=== PATIENT | male | born 1975 | race Caucasian/White ===

== ENCOUNTER 2016-03-23 14:59 | Observation (INO) | payer OTHER ==
[~2016-03-23] VITALS: Ht 172.7 cm; Wt 72.9 kg
--- NOTE | 2016-03-23 16:21 | DIAGNOSTIC IMAGING REPORT ---
PROCEDURE: XR CHEST 1 VIEW INDICATION: CHEST PAIN TECHNIQUE: Portable AP view 04:10 p.m. COMPARISON: Chest 09/01 15 and 08/07/2013 FINDINGS: Lungs are clear. Heart and mediastinum are normal. Thorax is normal. IMPRESSION: 1. Negative chest.
--- NOTE | 2016-03-23 20:26 | ED NURSING NOTES ---
Clinical Report - Nurses [facility] [address] [place] [address] 03/23/2016 15:00 [id number] Triage time 15:42 Mar 23 2016. Acuity: LEVEL 4. Chief Complaint: FEVER and BODY ACHES. Alert. No acute distress. --15:46 Tigist Oviedo R.N. 15:42 03/23/16. BP: 119/83. HR: 98. RR: 18. O2 saturation: 100%. Temp: 99.0 F. Pain level now 11/21. --15:46 Tigist Oviedo R.N. Weight: 79.3 kg stated. Height/Length: 68 inches Per Patient. BMI: 26.6. --15:42 Tigist Ovideo R.N. Medications Tums Oral. --15:45 Tigist Oviedo R.N. Medication/allergy information source: the patient. --15:46 Tigist Oviedo R.N. Allergies Lactose Intolerance (GI). Vicodin.(vomiting) --15:45 Tigist Oviedo R.N. History Arrived by private vehicle. Historian: patient. Primary physician ([facility]). ( Pt states there is something wrong with his heart because he can't breath. On observation, pt VSS.). Onset. (couple days). 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 (sudafed). PAST MEDICAL HX: Has not received seasonal influenza immunization. SOCIAL HX: Heavy tobacco smoker (cigarette)- less than 1 pack per day. Occasional alcohol use. History of drug use: marijuana. FALL RISK ASSESSMENT: Fall risk assessment completed. No fall risk identified. NUTRITIONAL RISK ASSESSMENT: The nutritional risk assessment revealed no deficiencies. FUNCTIONAL ASSESSMENT: Functional assessment: no impairments noted. LEARNING NEEDS ASSESSMENT: The learning needs assessment revealed no barriers. SKIN INTEGRITY ASSESSMENT: Skin integrity risk assessment completed. No skin integrity risk identified. --15:46 Tigist Oviedo R.N. PROBLEMS: Atypical Chest Pain. Abdominal Pain. Abnormal Test. Gastroesophageal Reflux Disease. Chest Injury. Fall. Contusion. Tetanus Status. URI. Immunizations. Migraine Headache. --15:46 Tigist Oviedo R.N. ADDITIONAL SURGERIES: Testicle surgery at age 7 . --15:46 Tigist Oviedo R.N. Interventions ID band on patient. To room. --15:46 Tigist Oviedo R.N. PHYSICAL ASSESSMENT GENERAL / NEURO / PSYCH: Alert. Appears in no acute distress. RESPIRATORY: Respirations not labored. --16:11 Reymundo Norwood R.N. 16:10 03/23/16. BP: 128/83. HR: 92. RR: 14. O2 saturation: 98% on room air. --16:11 Reymundo Norwood R.N. late entry -16:00. Ambulatory to room. Patient gowned. GENERAL / NEURO / PSYCH: Alert. Oriented X 4. Appears in pain and in distress. He has had weakness. HEENT: Pupils equal, round and reactive to light. Mucous membranes are pink. RESPIRATORY: Mild respiratory distress. Chest wall tenderness (substernal, radiating into his right arm.). CVS: Cardiac rhythm: normal sinus rhythm; left bundle branch block; (minimal ST elevations). Capillary refill less than 2 seconds. Pulses within normal limits. GI / : Abdomen soft and nontender and normal bowel sounds. SKIN: Skin intact. Skin is pale. Skin is warm. Skin is slightly diaphoretic. Normal skin turgor. --16:24 Randall Braxton R.N. NURSING PROGRESS NOTES Flu swab obtained by RN via nasal swab. --15:49 Tigist Oviedo R.N. ( EKG 15:52 by tech in triage). --15:49 Tigist Oviedo R.N. ( pt back to the waiting room.). --15:53 Tigist Oviedo R.N. ( pt states he eats TUMS, about 120 tablets weekly.). --15:56 Tigist Oviedo R.N. Checked patient name and birthdate: patient confirmed. Blood samples drawn from the IV site with Vacutainer by nurse ; labeled in presence of the patient and sent to lab: rainbow set. Line flushed with 10 mL normal saline post blood draw. Patient gowned. Two patient identifiers checked. Call light placed in reach. Bed placed in lowest position. Patient ready for evaluation- chart flagged. ( Radiology in room to perform CXR.). --16:12 Reymundo Norwood R.N. 16:00 03/23/2016 Aspirin PO Tablets 324 mg given. Allergies verified and confirmed 5 rights. --16:13 Randall Braxton R.N. 16:07 03/23/2016 Site #1 started via IV in the right antecubital space with an 18g angiocath, with aseptic technique and good blood return; one attempt. Blood drawn: rainbow set. Labeled in the presence of the patient and sent to the lab. Saline lock flushed with 10 mL saline. --16:14 Randall Braxton R.N. 16:08 03/23/2016 NITROGLYCERIN PASTE Topical Paste 1 inch. Applied to the right chest. Allergies verified and confirmed 5 rights. --16:13 Randall Braxton R.N. late entry -16:00. Head of bed elevated. Reassurance given. Patient ready for evaluation- chart flagged. ED physician notified. ( Monitoring: Cardiac II & III, SPo2, NIBP, RR.). --16:26 Randall Braxton R.N. 16:25 03/23/16. Pain level now: 09/21. --16:27 Randall Braxton R.N. 16:30 03/23/16. BP: 117/77. HR: 91. RR: 21. O2 saturation: 94% on room air. Pain level now: 08/21. --16:50 Randall Braxton R.N. 16:45 03/23/16. O2 saturation: 93% on room air. O2 started via nasal cannula at 2 liters/minute. Pain level now: 08/21. --16:51 Randall Braxton R.N. 17:10 03/23/16. BP: 116/69. HR: 89. RR: 19. O2 saturation: 95% on nasal cannula at 2 liters/minute. --17:42 Randall Braxton R.N. 17:25 03/23/16. BP: 110/77. HR: 91. RR: 18. O2 saturation: 97% on nasal cannula at 2 liters/minute. Pain level now: 0/10. Additional comments: asleep. --17:44 Randall Braxton R.N. DISPOSITION / DISCHARGE Departure time: 2235. Condition at departure: stable. Admitted. Report was given to a nurse via a phone call. Report included patient's care, treatment, medications, reviewed medication reconcilliation, and condition (including any recent changes or anticipated changes). All questions were answered. Report was acknowledged and care was transferred. Bed obtained and ready. Patient's personal items; items were placed in belongings bag, given to the mother and transported with the patient. FALL RISK ASSESSMENT: Fall risk assessment completed. No fall risk identified. --22:36 Henrry Hart R.N. 22:35 03/23/16. BP: 120/77. HR: 88. RR: 16. O2 saturation: 99%. Temp: 98 F. Pain level now 0/10. --22:36 Henrry Hart R.N. Locked/Released at 03/23/2016 22:36 by Henrry Hart R.N.
--- NOTE | 2016-03-23 20:26 | ED ORDER SUMMARY ---
..... Patient: SUMIT SUAZO OrderSheet [facility] VisitID: [id number] [place] [address] 41y, M Registration Date/Time: 03/23/2016 ORDER SHEET Weight: 79.3 kg (stated) Allergies: Lactose Intolerance (GI), Vicodin GENERAL ORDERS: EKG - ER Stat (15:47 03/23/2016 SBzhange R.N. per protocol) (15:49 SBalde R.N.) Rapid Influenza Screen (Nasal Pharyngeal) (nasal) Urgent (15:47 03/23/2016 SBalde R.N. per protocol) (Ack 15:59 TBergley) (16:00 TBergley) Chest 1V Urgent (15:59 03/23/2016 Maricel Wade) (Ack 16:06 TBergley) (16:12 Chayito R.N.) Cardiac Panel Stat (16:04 03/23/2016 Maricel Wade) (Ack 16:06 TBergley) (16:12 Chayito R.N.) Urine Drug Screen Urgent (16:04 03/23/2016 Maricel Wade) (Ack 16:06 TBergley) (19:22 Wanda R.N.) BNP Urgent (16:04 03/23/2016 Maricel Wade) (Ack 16:06 TBergley) (16:12 Chayito R.N.) D-Dimer Urgent (16:04 03/23/2016 Maricel Wade) (Ack 16:06 TBergley) (16:12 Chayito R.N.) CPK Urgent (19:29 03/23/2016 Maricel Wade) (19:37 Crys ER Paper Cutter Operator) Troponin-I Urgent (19:29 03/23/2016 Maricel Wade) (19:37 Crys ER Paper Cutter Operator) MEDICATION ORDERS: Aspirin PO 325 mg (Do not crush or chew, NOW) (16:04 03/23/2016 Maricel Wade) (16:13 Chayito R.N.) NitroGLYCERIN Paste Topical 1 in. (NOW, to CW) (16:04 03/23/2016 Maricel Wade) (16:13 Chayito Navarro) IV FLUIDS: IV Saline Lock (16:04 03/23/2016 Maricel Wade) (16:14 Chayito Navaror) ORDER SHEET NOTES: [Electronically signed by Edson Woodward Dr. (20:30 03/23/2016)] [Electronically signed by Henrry Hart R.N. (22:36 03/23/2016)] [Electronically locked/signed by Henrry Hart R.N. (22:36 03/23/2016)]
--- NOTE | 2016-03-23 20:26 | ED ORDER SUMMARY ---
..... Patient: SUMIT SUAZO OrderSheet [facility] VisitID: [id number] [place] [address] 41y, M Registration Date/Time: 03/23/2016 ORDER SHEET Weight: 79.3 kg (stated) Allergies: Lactose Intolerance (GI), Vicodin GENERAL ORDERS: EKG - ER Stat (15:47 03/23/2016 SBzhange R.N. per protocol) (15:49 SBalde R.N.) Rapid Influenza Screen (Nasal Pharyngeal) (nasal) Urgent (15:47 03/23/2016 SBalde R.N. per protocol) (Ack 15:59 TBergley) (16:00 TBergley) Chest 1V Urgent (15:59 03/23/2016 Maricel Wade) (Ack 16:06 TBergley) (16:12 Chayito R.N.) Cardiac Panel Stat (16:04 03/23/2016 Maricel Wade) (Ack 16:06 TBergley) (16:12 Chayito R.N.) Urine Drug Screen Urgent (16:04 03/23/2016 Maricel Wade) (Ack 16:06 TBergley) (19:22 Wanda R.N.) BNP Urgent (16:04 03/23/2016 Maricel Wade) (Ack 16:06 TBergley) (16:12 Chayito R.N.) D-Dimer Urgent (16:04 03/23/2016 Maricel Wade) (Ack 16:06 TBergley) (16:12 Chayito R.N.) CPK Urgent (19:29 03/23/2016 Maricel Wade) (19:37 Cyrs ER Cut Off Worker) Troponin-I Urgent (19:29 03/23/2016 Maricel Wade) (19:37 Crys ER Cut Off Worker) MEDICATION ORDERS: Aspirin PO 325 mg (Do not crush or chew, NOW) (16:04 03/23/2016 Maricel Wade) (16:13 Chayito R.N.) NitroGLYCERIN Paste Topical 1 in. (NOW, to CW) (16:04 03/23/2016 Maricel Wade) (16:13 Chayito Navarro) IV FLUIDS: IV Saline Lock (16:04 03/23/2016 Maricel Wade) (16:14 Chayito Navarro) ORDER SHEET NOTES: [Electronically signed by Edson Woodward Dr. (20:30 03/23/2016)] [Electronically signed by Henrry Hart R.N. (22:36 03/23/2016)] [Electronically locked/signed by Henrry Hart R.N. (22:36 03/23/2016)]
--- NOTE | 2016-03-23 20:26 | ED CLINICAL REPORT ---
Clinical Report - Physicians/Mid Levels Former[facility] [address] [place] [address] 03/23/2016 15:00 Patient: SUMIT SUAZO Time Seen: 16:08; initial patient contact. Arrived- By private vehicle. Historian- patient. HISTORY OF PRESENT ILLNESS Chief Complaint: CHEST PAIN. At its maximum, severity described as moderate. When seen in the E.D., severity described as moderate. Modifying factors. Not worsened by anything. Not relieved by anything. It is described as pressure and it is described as located in the central chest area. No radiation. This started today and is still present. Onset during light activity. No nausea, vomiting or diaphoresis. He has had difficulty breathing. Similar symptoms previously: None. Recent medical care: Not recently seen/assessed. REVIEW OF SYSTEMS No fever, chills, pedal edema or calf pain. He has had a cough. All systems otherwise negative, except as recorded above. PAST HISTORY Atypical Chest Pain. Abdominal Pain. Abnormal Test. Gastroesophageal Reflux Disease. Chest Injury. Fall. Contusion. Tetanus Status. URI. Immunizations. Migraine Headache. ADDITIONAL SURGERIES: Testicle surgery at age 7 . Medications: Tums Oral. Allergies: Lactose Intolerance (GI). Vicodin.(vomiting). SOCIAL HISTORY Current every day smoker. History of drug use: marijuana. No alcohol use. FAMILY HISTORY History of heart disease. ADDITIONAL NOTES The nursing notes have been reviewed with agreement regarding the chief complaint, PMH and patient medications and allergies. PHYSICAL EXAM Vital Signs: 03/23/2016 15:42 BP: 119/83. HR: 98. RR: 18. O2 saturation: 100%. Temp: 99.0 F. Have been reviewed as normal. Appearance: Alert. Oriented X3. No acute distress. Eyes: Eyes normal inspection. ENT: Pharynx normal. Neck: Normal inspection. CVS: Normal heart rate and rhythm. Heart sounds normal. Respiratory: No respiratory distress. Breath sounds normal. Abdomen: Soft and nontender. Bowel sounds normal. Skin: Skin warm and dry. Normal skin color. No rash. Extremities: No calf tenderness. No lower extremity edema. Neuro: Oriented X 3. LABS, X-RAYS, AND EKG EKG: EKG time: (1552). Normal sinus rhythm. Rate: 98. Normal P waves. Normal KE. Normal QRS complex. Right axis deviation. ST elevation in lead V2, V3 and V5 (present on EKG on 09/01/15). Changes present when compared to prior EKG. 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 ST elevations(mild) unchanged.). The study has been interpreted contemporaneously by me. The EKG appears to be a good tracing. Interpretation time: 1552. Chest X-ray: No acute disease. Normal lung markings present. Normal heart size. No infiltrate. Views: AP. Technique: good. The X-rays were independently viewed by me and interpreted contemporaneously by me. A comparison with prior films reveals that the findings are unchanged. Interpretation time: 17:44. Laboratory Tests: CBC w Diff: (JOHANNA: 03/23/2016 16:07) ( [facility] [place] 16:24) Final results Test Result Flag Units (Reference) WHITE BLOOD COUNT 9.5 K/uL (4.5-11.5) RED BLOOD COUNT 4.78 M/uL (4.50-5.90) HEMOGLOBIN 14.4 gm/dL (13.5-17.5) HEMATOCRIT 43.4 % (41.0-53.0) MEAN CELL VOLUME 91 fL (80-100) MEAN CORPUSCULAR HGB 30 pg (26-34) MEAN CORPUSCULAR HGB CONC 33 g/dL (31-37) RED CELL DISTRIBUTION WIDTH 13.1 % (11.6-14.8) PLATELET COUNT 188 K/uL (150-400) NEUTROPHIL % 75.8 H % (50-75) LYMPH % 15.4 L % (25-40) MONO % 8.4 % (3-14) EOSINOPHIL % 0.1 % (0-4) BASOPHIL % 0.3 % (0-2) [id number]: (JOHANNA: 03/23/2016 16:07) ( VtgRcvd 03/23/2016 16:41) Final results Test Result Flag Units (Reference) D-DIMER QUANTITATIVE 0.50 ug/mLFEU (0.27-0.52) The primary value of this quantitative assay relates toits negative predictive value (i.e. exclusion) of pulmonaryembolism/deep vein thrombosis/DIC.Elevated levels of d-dimer may also occur with:, age, cancer, inflammation, liver disease,post-op, infection, hematoma, coronary disease, peripheralarteriopathy, bleeding disorders and thrombolytic treatment.Results should be correlated with other clinical andradiological data.Testing Methodology: Latex Immunoassay BNP: (JOHANNA: 03/23/2016 16:07) ( [facility] [place] 03/23/2016 16:47) Final results Test Result Flag Units (Reference) B-TYPE NATRIURETIC PEPTIDE 11.1 pg/ml (5-100) CHEM 13 PANEL: (JOHANNA: 03/23/2016 16:07) ( [facility] [place] 03/23/2016 16:45) Final results Test Result Flag Units (Reference) GLUCOSE 99 mg/dL (70-110) BUN 9 mg/dL (7-18) CREATININE 1.2 mg/dL (0.6-1.3) Estimated GFR >60 mL/min Estimated GFR- >60 mL/min Note: Persistent reduction over 3 months in eGFR<60 mL/min/1.73 m2 defines CKD. Patients with eGFR values>=60 mL/min/1.73 m2 may also have CKD if evidence ofpersistent proteinuria. Additional information may be foundat www.kidney.org. SODIUM 138 mmol/L (136-145) POTASSIUM 4.1 mmol/L (3.5-5.1) CHLORIDE 99 mmol/L (98-107) CARBON DIOXIDE 29 mmol/L (21-32) CALCIUM 8.2 L mg/dL (8.5-10.1) TOTAL PROTEIN 7.3 g/dL (6.4-8.2) ALBUMIN 3.4 g/dL (3.3-5.0) BILIRUBIN, TOTAL 0.3 mg/dL (0.0-1.0) ALKALINE PHOSPHATASE 84 U/L (46-116) AST (SGOT) 25 U/L (15-37) ALT (SGPT) 25 U/L (12-78) CPK 224 U/L (24-260) MAGNESIUM 1.9 mg/dL (1.8-2.4) TROPONIN I <0.05 L ng/mL (0.00-1.5) TROPONIN REFERENCE RANGE:<0.1 NEGATIVE0.1-1.5 INDETERMINANT>1.5 POSITIVE Rapid Influenza Screen: (JOHANNA: 03/23/2016 15:48) ( MsgRcvd 03/23/2016 16:13) Final results SPECIMEN DESCRIPTION: NASAL Test Result Flag Units (Reference) RAPID INFLUENZA SCREEN DATE: 03/23/16 INFLUENZA A: NEGATIVE SCREEN FOR INFLUENZA A INFLUENZA B: NEGATIVE SCREEN FOR INFLUENZA B . PROGRESS AND PROCEDURES Discussed case with hospitalist, (call returned 1909, Dr. Alvarez. Run 2nd set of CE's, if neg, will admit and stress test in the AM). CLINICAL IMPRESSION Precordial chest pain .12 lead EKG performed. INSTRUCTIONS Follow-up: Screening today revealed the patient's blood pressure to be in the normal range. (Electronically signed by Edson Woodward Dr. 03/23/2016 20:30)
--- NOTE | 2016-03-23 20:26 | ED CLINICAL REPORT ---
Clinical Report - Physicians/Mid Levels [facility] [address] [place] [address] 03/23/2016 15:00 Patient: SUMIT SUAZO Time Seen: 16:08; initial patient contact. Arrived- By private vehicle. Historian- patient. HISTORY OF PRESENT ILLNESS Chief Complaint: CHEST PAIN. At its maximum, severity described as moderate. When seen in the E.D., severity described as moderate. Modifying factors. Not worsened by anything. Not relieved by anything. It is described as pressure and it is described as located in the central chest area. No radiation. This started today and is still present. Onset during light activity. No nausea, vomiting or diaphoresis. He has had difficulty breathing. Similar symptoms previously: None. Recent medical care: Not recently seen/assessed. REVIEW OF SYSTEMS No fever, chills, pedal edema or calf pain. He has had a cough. All systems otherwise negative, except as recorded above. PAST HISTORY Atypical Chest Pain. Abdominal Pain. Abnormal Test. Gastroesophageal Reflux Disease. Chest Injury. Fall. Contusion. Tetanus Status. URI. Immunizations. Migraine Headache. ADDITIONAL SURGERIES: Testicle surgery at age 7 . Medications: Tums Oral. Allergies: Lactose Intolerance (GI). Vicodin.(vomiting). SOCIAL HISTORY Current every day smoker. History of drug use: marijuana. No alcohol use. FAMILY HISTORY History of heart disease. ADDITIONAL NOTES The nursing notes have been reviewed with agreement regarding the chief complaint, PMH and patient medications and allergies. PHYSICAL EXAM Vital Signs: 03/23/2016 15:42 BP: 119/83. HR: 98. RR: 18. O2 saturation: 100%. Temp: 99.0 F. Have been reviewed as normal. Appearance: Alert. Oriented X3. No acute distress. Eyes: Eyes normal inspection. ENT: Pharynx normal. Neck: Normal inspection. CVS: Normal heart rate and rhythm. Heart sounds normal. Respiratory: No respiratory distress. Breath sounds normal. Abdomen: Soft and nontender. Bowel sounds normal. Skin: Skin warm and dry. Normal skin color. No rash. Extremities: No calf tenderness. No lower extremity edema. Neuro: Oriented X 3. LABS, X-RAYS, AND EKG EKG: EKG time: (1552). Normal sinus rhythm. Rate: 98. Normal P waves. Normal KE. Normal QRS complex. Right axis deviation. ST elevation in lead V2, V3 and V5 (present on EKG on 09/01/15). Changes present when compared to prior EKG. 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 ST elevations(mild) unchanged.). The study has been interpreted contemporaneously by me. The EKG appears to be a good tracing. Interpretation time: 1552. Chest X-ray: No acute disease. Normal lung markings present. Normal heart size. No infiltrate. Views: AP. Technique: good. The X-rays were independently viewed by me and interpreted contemporaneously by me. A comparison with prior films reveals that the findings are unchanged. Interpretation time: 17:44. Laboratory Tests: CBC w Diff: (JOHANNA: 03/23/2016 16:07) ( [facility] [place] 16:24) Final results Test Result Flag Units (Reference) WHITE BLOOD COUNT 9.5 K/uL (4.5-11.5) RED BLOOD COUNT 4.78 M/uL (4.50-5.90) HEMOGLOBIN 14.4 gm/dL (13.5-17.5) HEMATOCRIT 43.4 % (41.0-53.0) MEAN CELL VOLUME 91 fL (80-100) MEAN CORPUSCULAR HGB 30 pg (26-34) MEAN CORPUSCULAR HGB CONC 33 g/dL (31-37) RED CELL DISTRIBUTION WIDTH 13.1 % (11.6-14.8) PLATELET COUNT 188 K/uL (150-400) NEUTROPHIL % 75.8 H % (50-75) LYMPH % 15.4 L % (25-40) MONO % 8.4 % (3-14) EOSINOPHIL % 0.1 % (0-4) BASOPHIL % 0.3 % (0-2) [id number]: (JOHANNA: 03/23/2016 16:07) ( OkgRcvd 03/23/2016 16:41) Final results Test Result Flag Units (Reference) D-DIMER QUANTITATIVE 0.50 ug/mLFEU (0.27-0.52) The primary value of this quantitative assay relates toits negative predictive value (i.e. exclusion) of pulmonaryembolism/deep vein thrombosis/DIC.Elevated levels of d-dimer may also occur with:, age, cancer, inflammation, liver disease,post-op, infection, hematoma, coronary disease, peripheralarteriopathy, bleeding disorders and thrombolytic treatment.Results should be correlated with other clinical andradiological data.Testing Methodology: Latex Immunoassay BNP: (JOHANNA: 03/23/2016 16:07) ( [facility] 03/23/2016 16:47) Final results Test Result Flag Units (Reference) B-TYPE NATRIURETIC PEPTIDE 11.1 pg/ml (5-100) CHEM 13 PANEL: (JOHANNA: 03/23/2016 16:07) ( [facility] 03/23/[place] 16:45) Final results Test Result Flag Units (Reference) GLUCOSE 99 mg/dL (70-110) BUN 9 mg/dL (7-18) CREATININE 1.2 mg/dL (0.6-1.3) Estimated GFR >60 mL/min Estimated GFR- >60 mL/min Note: Persistent reduction over 3 months in eGFR<60 mL/min/1.73 m2 defines CKD. Patients with eGFR values>=60 mL/min/1.73 m2 may also have CKD if evidence ofpersistent proteinuria. Additional information may be foundat www.kidney.org. SODIUM 138 mmol/L (136-145) POTASSIUM 4.1 mmol/L (3.5-5.1) CHLORIDE 99 mmol/L (98-107) CARBON DIOXIDE 29 mmol/L (21-32) CALCIUM 8.2 L mg/dL (8.5-10.1) TOTAL PROTEIN 7.3 g/dL (6.4-8.2) ALBUMIN 3.4 g/dL (3.3-5.0) BILIRUBIN, TOTAL 0.3 mg/dL (0.0-1.0) ALKALINE PHOSPHATASE 84 U/L (46-116) AST (SGOT) 25 U/L (15-37) ALT (SGPT) 25 U/L (12-78) CPK 224 U/L (24-260) MAGNESIUM 1.9 mg/dL (1.8-2.4) TROPONIN I <0.05 L ng/mL (0.00-1.5) TROPONIN REFERENCE RANGE:<0.1 NEGATIVE0.1-1.5 INDETERMINANT>1.5 POSITIVE Rapid Influenza Screen: (JOHANNA: 03/23/2016 15:48) ( MsgRcvd 03/23/2016 16:13) Final results SPECIMEN DESCRIPTION: NASAL Test Result Flag Units (Reference) RAPID INFLUENZA SCREEN DATE: 03/23/16 INFLUENZA A: NEGATIVE SCREEN FOR INFLUENZA A INFLUENZA B: NEGATIVE SCREEN FOR INFLUENZA B . PROGRESS AND PROCEDURES Discussed case with hospitalist, (call returned 1909, Dr. Alvarez. Run 2nd set of CE's, if neg, will admit and stress test in the AM). CLINICAL IMPRESSION Precordial chest pain .12 lead EKG performed. INSTRUCTIONS Follow-up: Screening today revealed the patient's blood pressure to be in the normal range. (Electronically signed by Edson Woodward Dr. 03/23/2016 20:30)
[2016-03-23 21:28] VITALS: BP 110/77
--- NOTE | 2016-03-23 22:37 | ED MAR SUMMARY ---
..... Medication Administration Record [facility] [address] [place] [address] Patient: SUMIT SUAZO Visit ID: [id number] 41y, M Weight: 79.3 kg Height/Length: 68 in BMI: 26.6 ALLERGIES: Lactose Intolerance (GI), Vicodin Given 16:00 03/23/2016 Randall Braxton R.N. Medication Administered: ASPIRIN [PO], Dose: 324 mg Tablets PO. Medication Ordered: Aspirin PO 325 mg (Do not crush or chew, NOW). Given 16:08 03/23/2016 Randall Braxton R.N. Medication Administered: NITROGLYCERIN PASTE [TOPICAL], Dose: 1 in. Paste Topical. Medication Ordered: NitroGLYCERIN Paste Topical 1 in. (NOW, to ).
--- NOTE | 2016-03-23 22:37 | ED DISCHARGE INSTRUCTIONS ---
Patient: SUMIT SUAZO General Instructions [facility] VisitID: [id number] [address] [place] [address] 41y, M Registration Date/Time: 03/23/2016 Precordial chest pain .12 lead EKG performed. INSTRUCTIONS Follow-up: Screening today revealed the patient's blood pressure to be in the normal range. (Electronically signed by Edson Woodward Dr. 03/23/2016 20:30)
--- NOTE | 2016-03-23 22:37 | ED MAR SUMMARY ---
..... Medication Administration Record [facility] [address] [place] [address] Patient: SUMIT SUAZO Visit ID: [id number] 41y, M Weight: 79.3 kg Height/Length: 68 in BMI: 26.6 ALLERGIES: Lactose Intolerance (GI), Vicodin Given 16:00 03/23/2016 Randall Braxton R.N. Medication Administered: ASPIRIN [PO], Dose: 324 mg Tablets PO. Medication Ordered: Aspirin PO 325 mg (Do not crush or chew, NOW). Given 16:08 03/23/2016 Randall Braxton R.N. Medication Administered: NITROGLYCERIN PASTE [TOPICAL], Dose: 1 in. Paste Topical. Medication Ordered: NitroGLYCERIN Paste Topical 1 in. (NOW, to ).
--- NOTE | 2016-03-23 22:37 | ED MED RECONCILIATION SUMMARY ---
Patient: SUMIT SUAZO Medication Reconciliation Report [facility] VisitID: [id number] [address] [place] [address] 41y, M Registration Date/Time: 03/23/2016 Weight: 79.3 kg Height/Length: 68 in. BMI: 26.6 ALLERGIES: Lactose Intolerance (GI), Vicodin The patient's Home Medications are listed below: THE FOLLOWING MEDICATIONS NEED TO BE RECONCILED: Tums Oral The source(s) of the original Home Medication information: patient The following Medications were given to the patient in the Emergency Department: Aspirin [PO] PO 324 mg, administered: 03/23/2016 4:00:00 PM NITROGLYCERIN PASTE [TOPICAL] Topical 1 in., administered: 03/23/2016 4:08:00 PM The following Medications were prescribed to the patient: None.
--- NOTE | 2016-03-23 22:37 | ED DISCHARGE INSTRUCTIONS ---
Patient: SUMIT SUAZO General Instructions [facility] VisitID: [id number] [address] [place] [address] 41y, M Registration Date/Time: 03/23/2016 Precordial chest pain .12 lead EKG performed. INSTRUCTIONS Follow-up: Screening today revealed the patient's blood pressure to be in the normal range. (Electronically signed by Edson Woodward Dr. 03/23/2016 20:30)
--- NOTE | 2016-03-23 22:37 | ED MED RECONCILIATION SUMMARY ---
Patient: SUMIT SUAZO Medication Reconciliation Report [facility] VisitID: [id number] [address] [place] [address] 41y, M Registration Date/Time: 03/23/2016 Weight: 79.3 kg Height/Length: 68 in. BMI: 26.6 ALLERGIES: Lactose Intolerance (GI), Vicodin The patient's Home Medications are listed below: THE FOLLOWING MEDICATIONS NEED TO BE RECONCILED: Tums Oral The source(s) of the original Home Medication information: patient The following Medications were given to the patient in the Emergency Department: Aspirin [PO] PO 324 mg, administered: 03/23/2016 4:00:00 PM NITROGLYCERIN PASTE [TOPICAL] Topical 1 in., administered: 03/23/2016 4:08:00 PM The following Medications were prescribed to the patient: None.
[2016-03-23 22:57] VITALS: BP 127/73
--- NOTE | 2016-03-23 23:21 | Progress Note ---
Subjective General Admission History and Physical Examination Patient Name: Gabriel Davis Admission Date: March 23, 2016 Primary Care Provider: Rosalina Attending Physician: Yonas Alvarez M.D. Admitting Physician: Yonas Alvarez M.D. SUBJECTIVE Historian: Patient Reliability: Fair Chief Complaint: Chest pain History of Present Illness: The patient is a 41-year-old white male with a history of gastroesophageal reflux, migraine headaches, illicit drug use methamphetamine/marijuana, nicotine dependence-smoking who presented to [facility] emergency department on the day of admission secondary to complaints of shortness of breath, chest pain. [facility] ER evaluation was consistent with chest pain rule out ACS. Secondary to the above, the patient was admitted by Yonas Alvarez M.D. for further evaluation and treatment The history of present illness began several days prior to admission when the patient experienced cough, shortness of breath, low-grade temperature. This was associated with chest pressure in the epigastric region which was associated with palpitations, nausea. The patient has had recurrent chest discomfort in the past without workup. History of risk factors of smoking. Cholesterol history unknown. No diabetes mellitus, hypertension, or family history. The patient also complained of dysphagia with a feeling of food being stuck in the distal esophagus specifically when eating meat or bread. Not problematic at this time. The patient also gives a history of gallbladder problems in the past requesting workup of possible cholelithiasis. [facility] ER evaluation was consistent with chest pain rule out ACS. Secondary to this the patient was admitted for further evaluation and treatment. PAST MEDICAL HISTORY Illnesses: 1. Gastroesophageal reflux 2. Nicotine dependence-smoking 3. History of illicit drug use marijuana 4. Questionable history of previous myocardial infarction Allergies: 1. No known drug allergies Medications: 1. Tums Surgery: 1. Testicular surgery as a child Injuries: 1. No significant Hospitalizations: 1. For above medical problems and surgery FAMILY HISTORY Parents: 1. Father, Hamilton, living, 61, varicose veins, 2. Mother, Alyssa, living, 60, generalized anxiety disorder, depression Siblings: 1. Sister, history unknown Children: 1. The patient has 4 children all which are in good health Other significant family history: None SOCIAL HISTORY 1. Marital Status: Single 2. Taoism: Jewish 3. Education: GED 4. Employment History: Construction, unemployed 5. Occupational health exposures: None HABITS 1. Tobacco: One half pack per day, duration unknown 2. Drugs: Marijuana 3. Alcohol: 1 ounces per month 4. Caffeine: 2 cups of tea per day HEALTH SUPERVISION Item/Test 1. Not reviewed IMMUNIZATIONS: 1. Pneumococcal: No previous 2. Influenza: No recent 3. Tetanus: Obtained within the past 10 years, date unknown REVIEW OF SYSTEMS Remarkable for those things stated in the history of present illness and past medical history. Seventeen point review of system completed with the following notable findings: General: Pain, weakness, weight change Eyes: Blurred vision Throat: Difficulty swallowing, sore throat Respiratory: Shortness of breath, cough, wheezing Cardiovascular: Chest pain, palpitations, rapid heart rate, shortness of breath with exertion Gastrointestinal: Nausea, loss of appetite, heartburn, gallbladder problems Musculoskeletal: Joint stiffness, joint pain, joint swelling, muscle cramping pain Neurological: Balance problems, headaches, Psychological: Depression, difficulty sleeping, anxiety, loss of interest in enjoyable events Genitalia: Erectile dysfunction Physical Exam Vital Signs / I&Os Vital Signs Date Time Temp Pulse Resp B/P Pulse O2 O2 Flow FiO2 Ox Delivery Rate 03/23 2256 98.4 103 18 127/73 95 Room Air 03/23 2127 91 18 110/77 97 Nasal 2.0 Cannula General Appearance Alert, Oriented X3, Cooperative, No acute distress HEENT Atraumatic, PERRLA, EOMI, Moist mucous membranes Lungs Normal air movement, Scattered rhonchi, mild expiratory wheezes Neck Supple, No JVD Cardiovascular Regular rate and rhythm, Normal S1 and S2, No murmurs, gallops, rubs Abdomen Normal bowel sounds, Soft, mild epigastric tenderness Extremities No cyanosis, No clubbing, No edema Neurological Cranial nerves intact, Strength 5/5 x4 ext's, No lateralizing signs Psych/Mental Status Mental status normal, Mood normal LAB Results Laboratory Tests 03/23 03/23 03/23 03/23 1933 1915 1607 1607 Chemistry Plasma Sodium (136 - 145 mmol/L) 138 Plasma Potassium (3.5 - 5.1 mmol/L) 4.1 Plasma Chloride (98 - 107 mmol/L) 99 CO2 (Enzymatic) (21 - 32 mmol/L) 29 BUN (7 - 18 mg/dL) 9 Creatinine (0.6 - 1.3 mg/dL) 1.2 Est GFR ( Amer) (mL/min) >60 Est GFR (Non-Af Amer) (mL/min) >60 Glucose (70 - 110 mg/dL) 99 Plasma Calcium (8.5 - 10.1 mg/dL) 8.2 Plasma Magnesium (1.8 - 2.4 mg/dL) 1.9 Total Bilirubin (0.0 - 1.0 mg/dL) 0.3 AST (15 - 37 U/L) 25 ALT (12 - 78 U/L) 25 Alkaline Phosphatase (46 - 116 U/L) 84 Creatine Kinase (24 - 260 U/L) 208 224 Troponin (0.00 - 1.5 ng/mL) <0.05 <0.05 B-Natriuretic Peptide (5 - 100 pg/ml) 11.1 Total Protein (6.4 - 8.2 g/dL) 7.3 Albumin (3.3 - 5.0 g/dL) 3.4 Coagulation D-Dimer, Quantitative (0.27 - 0.52 ug/mLFEU) 0.50 Hematology WBC (4.5 - 11.5 K/uL) 9.5 RBC (4.50 - 5.90 M/uL) 4.78 Hgb (13.5 - 17.5 gm/dL) 14.4 Hct (41.0 - 53.0 %) 43.4 MCV (80 - 100 fL) 91 MCH (26 - 34 pg) 30 RDW (11.6 - 14.8 %) 13.1 Neut % (Auto) (50 - 75 %) 75.8 Lymph % (Auto) (25 - 40 %) 15.4 Josephine % (Auto) (3 - 14 %) 8.4 Eos % (Auto) (0 - 4 %) 0.1 Baso % (Auto) (0 - 2 %) 0.3 Plt Count, EDTA (150 - 400 K/uL) 188 PUBS MCHC (31 - 37 g/dL) 33 Toxicology Urine Opiates Screen (NEGATIVE) NEGATIVE Urine Methadone Screen (NEGATIVE) NEGATIVE Ur Barbiturates Screen (NEGATIVE) NEGATIVE U Amphetamin/Meth Scrn (NEGATIVE) POSITIVE MDMA (Ecstasy) Screen (NEGATIVE) NEGATIVE U Benzodiazepines Scrn (NEGATIVE) NEGATIVE Urine Cocaine Screen (NEGATIVE) NEGATIVE U Cannabinoids Screen (NEGATIVE) POSITIVE Microbiology Date/Time Procedure - Status Source Growth 03/23 1548 Influenza Screen - COMP NASALPHAR Imaging Chest X-Ray IMPRESSION: 1. Negative chest. Dictated by: RODY COLON MD D: FELIPA;03/23/16 1621 Assessment and Plan Problem List 1. Chest pain Plan -Patient presents with history of substernal epigastric chest pain -Pressure-like -Mild shortness of breath, palpitations, nausea -Serial troponin, EKG -EKG shows nonspecific changes -Cardiolite-exercise stress test in a.m. if above studies unremarkable -Nitrates, aspirin, Lovenox subcutaneous, -Check lipid profile 2. Gastroesophageal reflux Status Chronic Onset Date Unknown Plan -Patient with history of gastroesophageal reflux -Consumes up to 120 Tums tablets per week -Pepcid 20 mg IV twice a day -History of dysphagia with history consistent with distal food lodging -Surgical consultation for outpatient upper endoscopy -Discharge on dual dose PPI 3. Illicit drug use Status Chronic Onset Date Unknown Plan -Patient with history of marijuana usage -Tox screen positive on 2 separate occasions for methamphetamine. Patient denies use of methamphetamine but gives a history of use of Sudafed -Monitor 4. Dysphagia Status Chronic Onset Date Unknown Plan -See above -Schedule outpatient follow-up for upper endoscopy -Pepcid, Protonix 40 mg by mouth twice a day on discharge 5. Nicotine dependence Status Chronic Onset Date Unknown Plan -Patient with history of nicotine dependence-smoking -Smoking cessation education -NicoDerm patch -Emphasized need for smoking abstinence post discharge Current status: Fair, unstable Anticipated discharge date: Anticipated discharge in 24 hours Anticipated discharge placement: Home Patient care time: Time spent in chart review, patient interview, physical exam, CPOE, and care documentation: 70 minutes Visit to patient today: 1 Complexity of care: High E&M Codes Admission: Obsv-Comp/High/[id number]
[2016-03-24 02:24] VITALS: BP 110/57
[2016-03-24 06:54] VITALS: BP 114/66
[2016-03-24 10:12] VITALS: BP 112/76
--- NOTE | 2016-03-24 10:41 | DIAGNOSTIC IMAGING REPORT ---
PROCEDURE: US ABDOMEN ULTRASOUND-COMPLETE INDICATION: Abdominal pain, initial encounter TECHNIQUE: Jamison scale and color Doppler sonographic images of the abdomen were obtained. COMPARISON: CT abdomen/pelvis 08/18/2013 FINDINGS: Contracted gallbladder, similar to the prior CT scan. No gallstones seen. Negative Skinner's sign. CBD measures 2 mm. Liver measures 18.5 cm with a 1.2 cm echogenic lesion in the right hepatic lobe suggestive of a hemangioma. Pancreas normal as visualized. Normal spleen. Visualized aorta and IVC are patent. Normal hepatopetal flow. Normal kidneys. Right kidney measures 11.5 cm and left kidney 10.1 cm. IMPRESSION: 1. Contracted gallbladder, similar to appearance on prior CT scan, which may represent chronic changes. Consider hepatobiliary scan with ejection fraction 2. 1.2 cm hepatic probable hemangioma 3. Results discussed with Dr. Chappell
[2016-03-24 15:21] VITALS: BP 126/90
--- NOTE | 2016-03-24 15:28 | Discharge Summary ---
Discharge Summary Report Admit Date 03/23/16 Discharge Date 03/24/16 Admission Diagnosis Abdominal pain/Chest Pain Discharge Diagnosis Abdominal pain secondary to esophageal pathology Hospital Course Patient was seen last night and admitted for abdominal conteh/chest pain. Patient had any cardiac acute cardiac pathology ruled out secondary to patients negative cardiac enzymes. Additionally patient did not have any ekg changes on intial and repeat ekg. Patient had an ultrasound of his abdomen done which revealed a collapsed gallbladder. Patient did not have any other pathology noted. Patient then had a exercise stress test done which did not reveal any ekg changes, however the test had to end prematurely due to patients inability to tolerate the test. Patient then had nuclear stress test which has yet to be evaluated. Patient otherwise still has the abdominal pain. Patient does not have any acute problems which would require the patient to stay as an inpatient. Additionally patient will need to have an EGD as soon as feasible. We will set up the patient with a primary care appointment at [facility] and he will need a legal billing specialist referral from there. Patient is otherwise stable and will be discharged. General Appearance Alert, Oriented X3, No acute distress HEENT Atraumatic, Mucous membran moist/pink Lungs Clear to auscultation Cardiovascular Normal S1, Normal S2, No murmurs Abdomen Soft Skin No Rashes Neurological Normal speech, Strength at 5/5 X4 ext Lab/Imaging Laboratory Tests 03/23 03/23 03/23 03/23 03/23 1607 1607 1915 1933 2330 Chemistry Plasma Sodium (136 - 145 mmol/L) 138 Plasma Potassium (3.5 - 5.1 mmol/L) 4.1 Plasma Chloride (98 - 107 mmol/L) 99 CO2 (Enzymatic) (21 - 32 mmol/L) 29 BUN (7 - 18 mg/dL) 9 Creatinine (0.6 - 1.3 mg/dL) 1.2 Est GFR ( Amer) (mL/min) >60 Est GFR (Non-Af Amer) (mL/min) >60 Glucose (70 - 110 mg/dL) 99 Plasma Calcium (8.5 - 10.1 mg/dL) 8.2 Plasma Magnesium (1.8 - 2.4 mg/dL) 1.9 Total Bilirubin (0.0 - 1.0 mg/dL) 0.3 AST (15 - 37 U/L) 25 ALT (12 - 78 U/L) 25 Alkaline Phosphatase (46 - 116 U/L) 84 Creatine Kinase (24 - 260 U/L) 224 208 Troponin (0.00 - 1.5 ng/mL) <0.05 <0.05 <0.05 B-Natriuretic Peptide (5 - 100 pg/ml) 11.1 Total Protein (6.4 - 8.2 g/dL) 7.3 Albumin (3.3 - 5.0 g/dL) 3.4 Coagulation D-Dimer, Quantitative (0.27 - 0.52 ug/mLFEU) 0.50 Hematology WBC (4.5 - 11.5 K/uL) 9.5 RBC (4.50 - 5.90 M/uL) 4.78 Hgb (13.5 - 17.5 gm/dL) 14.4 Hct (41.0 - 53.0 %) 43.4 MCV (80 - 100 fL) 91 MCH (26 - 34 pg) 30 RDW (11.6 - 14.8 %) 13.1 Neut % (Auto) (50 - 75 %) 75.8 Lymph % (Auto) (25 - 40 %) 15.4 [place] % (Auto) (3 - 14 %) 8.4 Eos % (Auto) (0 - 4 %) 0.1 Baso % (Auto) (0 - 2 %) 0.3 Plt Count, EDTA (150 - 400 K/uL) 188 PUBS MCHC (31 - 37 g/dL) 33 Toxicology Urine Opiates Screen (NEGATIVE) NEGATIVE Urine Methadone Screen (NEGATIVE) NEGATIVE Ur Barbiturates Screen (NEGATIVE) NEGATIVE U Amphetamin/Meth Scrn (NEGATIVE) POSITIVE MDMA (Ecstasy) Screen (NEGATIVE) NEGATIVE U Benzodiazepines Scrn (NEGATIVE) NEGATIVE Urine Cocaine Screen (NEGATIVE) NEGATIVE U Cannabinoids Screen (NEGATIVE) POSITIVE 03/24 03/24 0621 0621 Chemistry Plasma Sodium (136 - 145 mmol/L) 139 Plasma Potassium (3.5 - 5.1 mmol/L) 3.7 Plasma Chloride (98 - 107 mmol/L) 102 CO2 (Enzymatic) (21 - 32 mmol/L) 28 BUN (7 - 18 mg/dL) 10 Creatinine (0.6 - 1.3 mg/dL) 1.1 Est GFR ( Amer) (mL/min) >60 Est GFR (Non-Af Amer) (mL/min) >60 Glucose (70 - 110 mg/dL) 136 Plasma Calcium (8.5 - 10.1 mg/dL) 7.9 Troponin (0.00 - 1.5 ng/mL) <0.05 Triglycerides (30 - 200 mg/dL) 85 Cholesterol (140 - 200 mg/dL) 116 LDL Cholesterol, Calc (mg/dL) 46 HDL Cholesterol (32 - 96 mg/dL) 53 LDL/HDL Ratio 0.9 Cholesterol/HDL Ratio 2.2 Coronary Risk Interp (0.4 - 1.0) 0.5 Microbiology Date/Time Procedure - Status Source Growth 03/23 1548 Influenza Screen - COMP NASALPHAR Discharge Instructions/Meds - follow up with your pcp - bring discharge paperwork to appointment - you will need an upper endoscopy as early as possible, please follow up with your new pcp in regards to obtaining an appointment
--- NOTE | 2016-03-24 15:55 | Provider's Discharge Care Plan ---
Problem, Goal, Plan Problem List 1. Chest pain Instructions: - follow up with your pcp in regards to your nuclear stress test 2. Gastroesophageal reflux Instructions: - take oral acid reduction agents daily - follow up with your pcp for possible scope 3. Dysphagia Instructions: - avoid smoking - avoid foods that cause your initial problems
[2016-03-24] MEDS ORDERED: PRILOSEC20 MG PO (15:59)
--- NOTE | 2016-03-29 17:12 | DIAGNOSTIC IMAGING REPORT ---
PROCEDURE: NM CARDIAC STRESS TEST INDICATION: Acute coronary syndrome TECHNIQUE: 10 mCi technetium 99 labeled sestamibi was used for rest imaging and 29 mCi for stress imaging. Please see separately dictated stress test report for details of that portion of the study. This was a pharmacologic stress test. COMPARISON: None FINDINGS: SPECT imaging shows normal perfusion with a some stress score of one. Gated SPECT imaging shows ejection fraction 39%, end-diastolic 21 and 4 ml, end-systolic volume 63 ml. There is a global hypokinesis. IMPRESSION: 1. Moderately decreased left ventricular ejection fraction 39%. 2. Normal size left ventricle. 3. Global hypokinesis. 4. No infarct or ischemia. 5. Findings are most consistent with nonischemic cardiomyopathy
== END 2016-03-24 18:30 | disposition home or self-care (01) ==
LOC: ED SRH 14:59 → ACUTE2 SRH 20:32 → TRANS SRH 20:32 → ACUTE2 SRH 20:40
PROVIDERS: ADMIT Family Medicine
PROC: 4A02XM4 Measurement of Cardiac Total Activity, External Approach (ICD-10-PCS; principal; 2016-03-24)
PROC: 3E033HZ Introduction of Radioactive Substance into Peripheral Vein, Percutaneous Approach (ICD-10-PCS; principal; 2016-03-24)
PROC: 3E0234Z Introduction of Serum, Toxoid and Vaccine into Muscle, Percutaneous Approach (ICD-10-PCS; 2016-03-24)
DX: K21.9 Gastro-esophageal reflux disease without esophagitis (principal); R07.89 Other chest pain; R13.10 Dysphagia, unspecified; R11.0 Nausea; F12.10 Cannabis abuse, uncomplicated; F17.210 Nicotine dependence, cigarettes, uncomplicated; Z23 Encounter for immunization
CPT/HCPCS: 29230; 29251; 29253; 29257; 29259; 29264; 90047; 90074; 90100; 90616; 91320; 91400; 91556; 92610; 92690; 92720; 92760; 92761; 92762; 92763; 92764; 92765; 92766; 92767; 95059

== ENCOUNTER 2016-06-23 17:32 | Emergency (ER) | payer OTHER ==
[~2016-06-23 17:32] MED LIST: PRILOSEC20 MG PO
--- NOTE | 2016-06-23 17:51 | ED CLINICAL REPORT ---
Clinical Report - Physicians/Mid Levels [facility] [address] [place] [address] 06/23/2016 17:32 Patient: SUMIT SUAZO Time Seen: 17:45; initial patient contact, initial documentation, patient care assumed. Arrived- By private vehicle. Historian- patient. HISTORY OF PRESENT ILLNESS Chief Complaint: DENTAL PAIN. This started yesterday and is still present. It was abrupt in onset and has been constant. Pain described as severe. No sore throat, mouth sores, nasal discharge or congestion or ear pain. He has had severe toothache (right upper canine). He has had mild swelling of the right face. (says he made dental appt, but it is not for another 1 1/2 weeks). Similar symptoms previously: None. Recent medical care: Not recently seen/assessed. REVIEW OF SYSTEMS No fever or difficulty breathing. All systems otherwise negative, except as recorded above. PAST HISTORY See nurses notes. PROBLEMS: Chest Pain. Atypical Chest Pain. Abdominal Pain. Abnormal Test. Gastroesophageal Reflux Disease. Chest Injury. Fall. Contusion. Tetanus Status. URI. Migraine Headache. --17:43 Fariha Mohan R.N. ADDITIONAL SURGERIES: Testicle surgery at age 7 . --17:43 Fariha Mohan R.N. SOCIAL HISTORY Heavy tobacco smoker. Regular alcohol use. History of heavy drug use: marijuana. No recent travel. Is a local resident. FAMILY HISTORY Negative. ADDITIONAL NOTES The nursing notes have been reviewed with agreement regarding the chief complaint, HPI, ROS, PMH and patient medications and allergies. PHYSICAL EXAM Vital Signs: 06/23/2016 17:38 BP: 177/110. HR: 86. RR: 17. O2 saturation: 100%. Temp: 98.1 F. Pain level now: 10/10. Have been reviewed as abnormal and appear to be correct. Hypertensive. Heart rate normal. Respiratory rate normal. Temperature normal. Oxygen saturation normal. Appearance: Alert. No acute distress. Head: Abnormal external inspection. Mild swelling of the right maxilla. Eyes: Pupils equal, round and reactive to light. Conjunctivae and eyelids normal. ENT: Moderate, extensive dental decay with gingival swelling and fluctuance (upper right canine) (gum swelling over R upper canine with mild erythema and tooth broken in half, several other teeth broken or decayed or both). No gingival tenderness or induration. Ears normal. Nose normal. Gums abnormal. Trismus present. Pharynx normal. Lips normal. Uvula midline. Neck: Lymphadenopathy. Normal inspection. Mild right anterior neck lymphadenopathy present. Trachea midline. Thyroid normal. Neck supple. Respiratory: No respiratory distress. Skin: Normal skin color. No rash. Normal skin turgor. Extremities: Extremities exhibit normal ROM. Extremities nontender. Neuro: Oriented X 3. No motor deficit. No sensory deficit. PROGRESS AND PROCEDURES Patient counseled in person regarding the patient's stable condition and diagnosis. Differential Diagnosis: Other possible considerations: dental pain, abscess, caries, substance abuse. Above considerations are based on history and physical exam. Differential diagnosis was discussed with patient. Disposition: Discharged home in good and unchanged condition (17:50). Condition: good and stable. CLINICAL IMPRESSION Periapical dental abscess. No sinus tract or Zana's angina. INSTRUCTIONS Warnings: GENERAL WARNINGS: Return or contact your physician immediately if your condition worsens or changes unexpectedly, if not improving as expected, or if other problems arise. Specifically return if problem worsens. Prescription Medications: Penicillin V 500mg: take 1 tab orally every 6 hours for 10 days. Dispense forty (40). No refill Ultram 50 mg tablets: take 1-2 orally every 6 hours as needed for pain. Dispense twenty (20). No refills. Substitution is permissible. Follow-up: Follow up with a dentist in about three days even if well. Call for an appointment. Summary of care provided to patient. Understanding of the discharge instructions verbalized by patient. (Electronically signed by Carmela Lyn A.R.N.P. 06/23/2016 18:27)
--- NOTE | 2016-06-23 17:51 | ED NURSING NOTES ---
Clinical Report - Nurses [facility] [address] [place] [address] 06/23/2016 17:32 Patient: SUMIT SUAZO TRIAGE Triage time 17:36. Acuity: LEVEL 4. Chief Complaint: (Dental pain and facial swelling). 17:44 06/23/16. Alert. No acute distress. SEPSIS SCREEN: Sepsis Screen. Negative (no infection suspected/documented). INOCENCIO COMA SCORE: [place] Coma Scale: 15- eyes open spontaneously (4); best verbal response- oriented x 4 (5); best motor response- obeys commands (6). --17:44 Fariha Mohan R.N. 17:38 06/23/16. BP: 177/110. HR: 86. RR: 17. O2 saturation: 100%. Temp: 98.1 F. Pain level now: 11/21. --17:44 Fariha Mohan R.N. Weight: 77.1 kg stated. Height/Length: 68 inches Per Patient. BMI: 25.9. --17:44 Fariha Mohan R.N. Medications PriLOSEC Oral. --17:42 Fariha Mohan R.N. Allergies Lactose Intolerance (GI). Vicodin.(vomiting) --17:42 Fariha Mohan R.N. History Arrived by private vehicle. Historian: patient. Accompanied by family. Primary physician (No PCP). This started yesterday. He has had weakness. Reports muscle aches. ( nausea). Treatment CLIENT RENEWAL SPECIALIST: Took Tylenol and ibuprofen. (Percocet (prescribed) for "collapsed gallbladder and heart burn"). PAST MEDICAL HX: Immunizations: up-to-date. SOCIAL HX: Heavy tobacco smoker- less than 1 pack per day. Alcohol use. History of heavy drug use: marijuana. FALL RISK ASSESSMENT: Fall risk assessment completed. No fall risk identified. NUTRITIONAL RISK ASSESSMENT: The nutritional risk assessment revealed no deficiencies. FUNCTIONAL ASSESSMENT: Functional assessment: no impairments noted. LEARNING NEEDS ASSESSMENT: The learning needs assessment revealed no barriers. --17:44 Fariha Mohan R.N. PROBLEMS: Chest Pain. Atypical Chest Pain. Abdominal Pain. Abnormal Test. Gastroesophageal Reflux Disease. Chest Injury. Fall. Contusion. Tetanus Status. URI. Migraine Headache. --17:43 Fariha Mohan R.N. ADDITIONAL SURGERIES: Testicle surgery at age 7 . --17:43 Fariha Mohan R.N. Interventions ID band on patient. To treatment room. --17:44 Fariha Mohan R.N. PHYSICAL ASSESSMENT 17:48 06/23/16. GENERAL / NEURO / PSYCH: Alert. Oriented X 4. Appears in no acute distress. HEENT: Pupils equal, round and reactive to light. Sinus tenderness present. ( Swelling noted in right sinus area.). Mucous membranes are pink. RESPIRATORY: Respirations not labored. CVS: Capillary refill less than 2 seconds. Pulses within normal limits. SKIN: Skin intact. Skin is warm and dry. Normal skin turgor. --17:48 Fariha Mohan R.N. NURSING PROGRESS NOTES 17:45 06/23/16. Two patient identifiers checked. Call light placed in reach. Side rails up x 1. Bed placed in lowest position. Brakes of bed on. Patient ready for evaluation- chart flagged and notification provided. --17:45 Fariha Mohan R.N. DISPOSITION / DISCHARGE 17:57 06/23/16. No learning barriers present. Discharge instructions provided and reviewed with the patient. Reviewed warnings. Reviewed medication(s). Treatments reviewed. Reviewed referrals. Patient verbalized understanding. Written instructions provided in [place]. The patient was discharged by the nurse practitioner. He was discharged home and accompanied by upper shaper. He left the Emergency Department ambulatory and via private vehicle. Logistics Planning Manager driving. --17:57 Fariha Mohan R.N. 17:38 06/23/16. BP: 177/110. HR: 86. RR: 17. O2 saturation: 100%. Temp: 98.1 F. Pain level now: 11/21. --17:57 Fariha Mohan R.N. Locked/Released at 06/23/2016 17:58 by Fariha Mohan R.N.
--- NOTE | 2016-06-23 17:51 | ED NURSING NOTES ---
Clinical Report - Nurses [facility] [address] [place] [address] 06/23/2016 17:32 Patient: SUMIT SUAZO TRIAGE Triage time 17:36. Acuity: LEVEL 4. Chief Complaint: (Dental pain and facial swelling). 17:44 06/23/16. Alert. No acute distress. SEPSIS SCREEN: Sepsis Screen. Negative (no infection suspected/documented). INOCENCIO COMA SCORE: [place] Coma Scale: 15- eyes open spontaneously (4); best verbal response- oriented x 4 (5); best motor response- obeys commands (6). --17:44 Fariha Mohan R.N. 17:38 06/23/16. BP: 177/110. HR: 86. RR: 17. O2 saturation: 100%. Temp: 98.1 F. Pain level now: 11/21. --17:44 Fariha Mohan R.N. Weight: 77.1 kg stated. Height/Length: 68 inches Per Patient. BMI: 25.9. --17:44 Fariha Mohan R.N. Medications PriLOSEC Oral. --17:42 Fariha Mohan R.N. Allergies Lactose Intolerance (GI). Vicodin.(vomiting) --17:42 Fariha Mohan R.N. History Arrived by private vehicle. Historian: patient. Accompanied by family. Primary physician (No PCP). This started yesterday. He has had weakness. Reports muscle aches. ( nausea). Treatment WELDER REPAIR: Took Tylenol and ibuprofen. (Percocet (prescribed) for "collapsed gallbladder and heart burn"). PAST MEDICAL HX: Immunizations: up-to-date. SOCIAL HX: Heavy tobacco smoker- less than 1 pack per day. Alcohol use. History of heavy drug use: marijuana. FALL RISK ASSESSMENT: Fall risk assessment completed. No fall risk identified. NUTRITIONAL RISK ASSESSMENT: The nutritional risk assessment revealed no deficiencies. FUNCTIONAL ASSESSMENT: Functional assessment: no impairments noted. LEARNING NEEDS ASSESSMENT: The learning needs assessment revealed no barriers. --17:44 Fariha Mohan R.N. PROBLEMS: Chest Pain. Atypical Chest Pain. Abdominal Pain. Abnormal Test. Gastroesophageal Reflux Disease. Chest Injury. Fall. Contusion. Tetanus Status. URI. Migraine Headache. --17:43 Fariha Mohan R.N. ADDITIONAL SURGERIES: Testicle surgery at age 7 . --17:43 Fariha Mohan R.N. Interventions ID band on patient. To treatment room. --17:44 Fariha Mohan R.N. PHYSICAL ASSESSMENT 17:48 06/23/16. GENERAL / NEURO / PSYCH: Alert. Oriented X 4. Appears in no acute distress. HEENT: Pupils equal, round and reactive to light. Sinus tenderness present. ( Swelling noted in right sinus area.). Mucous membranes are pink. RESPIRATORY: Respirations not labored. CVS: Capillary refill less than 2 seconds. Pulses within normal limits. SKIN: Skin intact. Skin is warm and dry. Normal skin turgor. --17:48 Fariha Moahn R.N. NURSING PROGRESS NOTES 17:45 06/23/16. Two patient identifiers checked. Call light placed in reach. Side rails up x 1. Bed placed in lowest position. Brakes of bed on. Patient ready for evaluation- chart flagged and notification provided. --17:45 Fariha Mohan R.N. DISPOSITION / DISCHARGE 17:57 06/23/16. No learning barriers present. Discharge instructions provided and reviewed with the patient. Reviewed warnings. Reviewed medication(s). Treatments reviewed. Reviewed referrals. Patient verbalized understanding. Written instructions provided in [place]. The patient was discharged by the nurse practitioner. He was discharged home and accompanied by claims supervisor. He left the Emergency Department ambulatory and via private vehicle. Road Advisor driving. --17:57 Fariha Mohan R.N. 17:38 06/23/16. BP: 177/110. HR: 86. RR: 17. O2 saturation: 100%. Temp: 98.1 F. Pain level now: 11/21. --17:57 Fariha Mohan R.N. Locked/Released at 06/23/2016 17:58 by Fariha Mohan R.N.
--- NOTE | 2016-06-23 18:27 | ED MAR SUMMARY ---
..... Medication Administration Record [facility] [address] [place], [place] [id number] Patient: SUMIT SUAZO Visit ID: [id number] 41y, M Weight: 77.1 kg Height/Length: 68 in BMI: 25.9 ALLERGIES: Lactose Intolerance (GI), Vicodin
--- NOTE | 2016-06-23 18:27 | ED MAR SUMMARY ---
..... Medication Administration Record [facility] [address] [place], [place] [id number] Patient: SUMIT SUAZO Visit ID: [id number] 41y, M Weight: 77.1 kg Height/Length: 68 in BMI: 25.9 ALLERGIES: Lactose Intolerance (GI), Vicodin
--- NOTE | 2016-06-23 18:27 | ED DISCHARGE INSTRUCTIONS ---
Patient: SUMIT SUAZO General Instructions [facility] VisitID: [id number] [place] [address] 41y, M Registration Date/Time: 06/23/2016 Periapical dental abscess. No sinus tract or Zana's angina. INSTRUCTIONS Warnings: GENERAL WARNINGS: Return or contact your physician immediately if your condition worsens or changes unexpectedly, if not improving as expected, or if other problems arise. Specifically return if problem worsens. Prescription Medications: Penicillin V 500mg: take 1 tab orally every 6 hours for 10 days. Dispense forty (40). No refill Ultram 50 mg tablets: take 1-2 orally every 6 hours as needed for pain. Dispense twenty (20). No refills. Substitution is permissible. Follow-up: Follow up with a dentist in about three days even if well. Call for an appointment. Summary of care provided to patient. Understanding of the discharge instructions verbalized by patient. ADDITIONAL INFORMATION Dental Abscess A dental abscess is an infection of the tooth socket. It often starts with a crack or cavity in the tooth. A pocket of pus forms between the tooth and the bone. The infection causes pain and swelling of the gum, cheek or jaw. The pain is often made worse by drinking hot or cold fluids, or biting on hard foods. Pain may be felt in the facial sinus or in the ear. A severe infection can interfere with swallowing and breathing. In the emergency department or clinic, you will be started on an antibiotic. However, final treatment requires drainage of the pus. This can be done by removing the tooth or performing a root canal. A root canal is done by an oral surgeon and involves drilling an opening in the tooth to drain the pus. After the infection has healed, a crown is placed over the tooth. Home care The following guidelines will help you care for your abscess at home: Avoid hot and cold foods and liquids since your tooth may be sensitive to temperature changes. If your tooth is chipped or cracked, or if there is a large open cavity, applyoil of cloves(available qgau-hgj-ysslpso in drug stores) directly to the tooth to reduce pain. Some pharmacies carry an sfan-cmg-drvntkp "toothache kit". This contains oil of cloves and a paste, which can be applied over the exposed tooth to decrease sensitivity. Apply an ice pack (ice cubes in a plastic bag, wrapped in a towel) over the injured area for 20 minutes every 12 hours the first day for pain relief. Continue this 34 times a day until the pain and swelling goes away. You may use acetaminophen or ibuprofen to control pain, unless another medicine was prescribed. If you have chronic liver or kidney disease or ever had a stomach ulcer or GI bleeding, talk with your doctor before using these medicines. An antibiotic will be prescribed. Take it as directed until completed, even if you are feeling better sooner. Follow-up care Follow up as directed with a dentist or oral surgeon. Even though your pain may improve with the treatment given today, only a dentist or oral surgeon can provide full treatment for this problem. When to seek medical care Get prompt medical attention or contact your doctor if any of the following occur: Your face or eyelid becomes swollen or red Pain worsens or spreads to the neck Fever over 100.4F (38.0C) Unusual drowsiness; headache or stiff neck; weakness, or fainting Pus drains from the gum or tooth Difficulty talking, swallowing or breathing Unable to open your mouth wide Dental Cavity A dental cavity is a pit or crater in the enamel surface of the tooth. This exposes the sensitive inner layer of the tooth and causes pain. If untreated, the cavity will get bigger and may cause an infection or abscess in the root of the tooth. An infection in the tooth is a much more serious problem and may require a root canal or removal of the entire tooth. The tooth pain may be made worse by drinking hot or cold fluids. It may spread from the tooth to the ear or jaw on the same side. Home Care: Avoid hot and cold foods, and liquids since your tooth may be sensitive to temperature changes. If your tooth is chipped or cracked, or if there is a large open cavity, apply OIL OF CLOVES (available exdt-hvl-lyxlikj in drug stores) directly to the tooth to reduce pain. Some pharmacies carry an wrni-rsj-hsiyxlo "toothache kit." This contains oil of cloves and a paste, which can be applied over the exposed tooth to decrease sensitivity. An ice pack on your jaw over the sore area may help to reduce pain. You may use acetaminophen (Tylenol) or ibuprofen (Motrin, Advil) to control pain, unless another pain medicine was prescribed. [ NOTE: If you have liver disease or ever had a stomach ulcer, talk with your doctor before using these medicines.] If you have signs of an infection, an antibiotic will be given. Take it as directed. Follow-Up with your dentist as directed. Although your pain may go away with the treatment given, only a dentist can fully evaluate and treat this problem to prevent further tooth damage. Get Prompt Medical Attention if any of the following occur: Redness or swelling of the face Pain worsens or spreads to the neck Fever over 100.5 F (38C) Unusual drowsiness; headache or stiff neck; weakness or fainting Pus drains from the tooth or gum Difficulty swallowing or breathing Dental Pain A crack or cavity in the tooth, which exposes the sensitive inner area of the tooth can cause tooth pain. An infection in the gum or the root of the tooth can cause pain and swelling. The pain is often made worse by drinking hot or cold fluids, or biting on hard foods. Pain may spread from the tooth to the ear or jaw on the same side. Home Care: Avoid hot and cold foods and liquids since your tooth may be sensitive to temperature changes. If your tooth is chipped or cracked, or if there is a large open cavity, apply OIL OF CLOVES (available blaw-suh-mmqdqij in drug stores) directly to the tooth to reduce pain. Some pharmacies carry an dnts-yzu-myiipzc "toothache kit." This contains a paste, which can be applied over the exposed tooth to decrease sensitivity. A cold pack on your jaw over the sore area may help reduce pain. You may use acetaminophen (Tylenol) or ibuprofen (Motrin, Advil) to control pain, unless another medicine was prescribed. [ NOTE: If you have chronic liver or kidney disease or ever had a stomach ulcer or GI bleeding, talk with your doctor before using these medicines.] If you have signs of an infection, an antibiotic will be given. Take it as directed. Follow-Up as directed with a dentist. Your pain may go away with the treatment given. However, only a dentist can fully evaluate and treat the cause and prevent the pain from coming back again. TOOTHACHE IS A SIGN OF DISEASE IN YOUR TOOTH AND SHOULD BE EXAMINED AND TREATED BY A DENTIST. Get Prompt Medical Attention if any of the following occur: Your face becomes swollen or red Pain worsens or spreads to the neck Fever over 100.4 F (38.0 C) Unusual drowsiness; headache or stiff neck; weakness or fainting Pus drains from the tooth Difficulty swallowing or breathing Penicillin V Potassium Oral tablet What is this medicine? PENICILLIN V (pen i SILL in V) is a penicillin antibiotic. It is used to treat certain kinds of bacterial infections. It will not work for colds, flu, or other viral infections. How should I use this medicine? Take this medicine by mouth with a full glass of water. Follow the directions on the prescription label. Take your medicine at regular intervals. Do not take your medicine more often than directed. Take all of your medicine as directed even if you think your are better. Do not skip doses or stop your medicine early. Talk to your atm servicer regarding the use of this medicine in children. While this drug may be prescribed for selected conditions, precautions do apply. What side effects may I notice from receiving this medicine? Side effects that you should report to your doctor or health pulmonary care nurse as soon as possible: allergic reactions like skin rash or hives, swelling of the face, lips, or tongue breathing problems fever new symptoms of infection redness, blistering, peeling or loosening of the skin, including inside the mouth unusually weak or tired Side effects that usually do not require medical attention (report to your doctor or health pulmonary care nurse if they continue or are bothersome): diarrhea headache nausea, vomiting sore mouth or tongue stomach upset What may interact with this medicine? control pills methotrexate other antibiotics probenecid some vaccines What if I miss a dose? If you miss a dose, take it as soon as you can. If it is almost time for your next dose, take only that dose. Do not take double or extra doses. Where should I keep my medicine? Keep out of the reach of children. Store at room temperature between 15 and 30 degrees C (59 and 86 degrees F). Keep container tightly closed. Throw away any unused medicine after the expiration date. What should I tell my health care provider before I take this medicine? They need to know if you have any of these conditions: asthma bowel disease, like colitis eczema kidney disease an unusual or allergic reaction to penicillin, cephalosporins, other antibiotics or medicines, foods, tartrazine or other dyes, or preservatives or trying to get breast-feeding What should I watch for while using this medicine? Tell your doctor or health pulmonary care nurse if your symptoms do not improve. Do not treat diarrhea with over the counter products. Contact your doctor if you have diarrhea that lasts more than 2 days or if it is severe and watery. If you have diabetes, you may get a false-positive result for sugar in your urine. Check with your doctor or health pulmonary care nurse. control pills may not work properly while you are taking this medicine. Talk to your doctor about using an extra method of control. Tramadol Hydrochloride Oral tablet What is this medicine? TRAMADOL (TRA ma dole) is a pain reliever. It is used to treat moderate to severe pain in adults. How should I use this medicine? Take this medicine by mouth with a full glass of water. Follow the directions on the prescription label. If the medicine upsets your stomach, take it with food or milk. Do not take more medicine than you are told to take. Talk to your atm servicer regarding the use of this medicine in children. Special care may be needed. What side effects may I notice from receiving this medicine? Side effects that you should report to your doctor or health pulmonary care nurse as soon as possible: allergic reactions like skin rash, itching or hives, swelling of the face, lips, or tongue breathing difficulties, wheezing confusion itching light headedness or fainting spells redness, blistering, peeling or loosening of the skin, including inside the mouth seizures Side effects that usually do not require medical attention (report to your doctor or health pulmonary care nurse if they continue or are bothersome): constipation dizziness drowsiness headache nausea, vomiting What may interact with this medicine? Do not take this medicine with any of the following medications: MAOIs like Carbex, Eldepryl, Marplan, Nardil, and Parnate This medicine may also interact with the following medications: alcohol or medicines that contain alcohol antihistamines benzodiazepines bupropion carbamazepine or oxcarbazepine clozapine cyclobenzaprine digoxin furazolidone linezolid medicines for depression, anxiety, or psychotic disturbances medicines for migraine headache like almotriptan, eletriptan, frovatriptan, naratriptan, rizatriptan, sumatriptan, zolmitriptan medicines for pain like pentazocine, buprenorphine, butorphanol, meperidine, nalbuphine, and propoxyphene medicines for sleep muscle relaxants naltrexone phenobarbital phenothiazines like perphenazine, thioridazine, chlorpromazine, mesoridazine, fluphenazine, prochlorperazine, promazine, and trifluoperazine procarbazine warfarin What if I miss a dose? If you miss a dose, take it as soon as you can. If it is almost time for your next dose, take only that dose. Do not take double or extra doses. Where should I keep my medicine? Keep out of the reach of children. Store at room temperature between 15 and 30 degrees C (59 and 86 degrees F). Keep container tightly closed. Throw away any unused medicine after the expiration date. What should I tell my health care provider before I take this medicine? They need to know if you have any of these conditions: brain tumor depression drug abuse or addiction head injury if you frequently drink alcohol containing drinks kidney disease or trouble passing urine liver disease lung disease, asthma, or breathing problems seizures or epilepsy suicidal thoughts, plans, or attempt; a previous suicide attempt by you or a family member an unusual or allergic reaction to tramadol, codeine, other medicines, foods, dyes, or preservatives or trying to get breast-feeding What should I watch for while using this medicine? Tell your doctor or health pulmonary care nurse if your pain does not go away, if it gets worse, or if you have new or a different type of pain. You may develop tolerance to the medicine. Tolerance means that you will need a higher dose of the medicine for pain relief. Tolerance is normal and is expected if you take this medicine for a long time. Do not suddenly stop taking your medicine because you may develop a severe reaction. Your body becomes used to the medicine. This does NOT mean you are addicted. Addiction is a behavior related to getting and using a drug for a non-medical reason. If you have pain, you have a medical reason to take pain medicine. Your doctor will tell you how much medicine to take. If your doctor wants you to stop the medicine, the dose will be slowly lowered over time to avoid any side effects. You may get drowsy or dizzy. Do not drive, use machinery, or do anything that needs mental alertness until you know how this medicine affects you. Do not stand or sit up quickly, especially if you are an older patient. This reduces the risk of dizzy or fainting spells. Alcohol can increase or decrease the effects of this medicine. Avoid alcoholic drinks. You may have constipation. Try to have a bowel movement at least every 2 to 3 days. If you do not have a bowel movement for 3 days, call your doctor or health pulmonary care nurse. Your mouth may get dry. Chewing sugarless gum or sucking hard candy, and drinking plenty of water may help. Contact your doctor if the problem does not go away or is severe. You have been given the following additional information: Tooth Abscess Dental Cavity Dental Pain Penicillin V Potassium Oral tablet Tramadol Hydrochloride Oral tablet (Electronically signed by Carmela Lyn A.R.N.P. 06/23/2016 18:27)
--- NOTE | 2016-06-23 18:27 | ED DISCHARGE INSTRUCTIONS ---
Patient: SUMIT SUAZO General Instructions [facility] VisitID: [id number] [place] [address] 41y, M Registration Date/Time: 06/23/2016 Periapical dental abscess. No sinus tract or Zana's angina. INSTRUCTIONS Warnings: GENERAL WARNINGS: Return or contact your physician immediately if your condition worsens or changes unexpectedly, if not improving as expected, or if other problems arise. Specifically return if problem worsens. Prescription Medications: Penicillin V 500mg: take 1 tab orally every 6 hours for 10 days. Dispense forty (40). No refill Ultram 50 mg tablets: take 1-2 orally every 6 hours as needed for pain. Dispense twenty (20). No refills. Substitution is permissible. Follow-up: Follow up with a dentist in about three days even if well. Call for an appointment. Summary of care provided to patient. Understanding of the discharge instructions verbalized by patient. ADDITIONAL INFORMATION Dental Abscess A dental abscess is an infection of the tooth socket. It often starts with a crack or cavity in the tooth. A pocket of pus forms between the tooth and the bone. The infection causes pain and swelling of the gum, cheek or jaw. The pain is often made worse by drinking hot or cold fluids, or biting on hard foods. Pain may be felt in the facial sinus or in the ear. A severe infection can interfere with swallowing and breathing. In the emergency department or clinic, you will be started on an antibiotic. However, final treatment requires drainage of the pus. This can be done by removing the tooth or performing a root canal. A root canal is done by an oral surgeon and involves drilling an opening in the tooth to drain the pus. After the infection has healed, a crown is placed over the tooth. Home care The following guidelines will help you care for your abscess at home: Avoid hot and cold foods and liquids since your tooth may be sensitive to temperature changes. If your tooth is chipped or cracked, or if there is a large open cavity, applyoil of cloves(available mjxd-ytv-fgawljv in drug stores) directly to the tooth to reduce pain. Some pharmacies carry an xoqa-ljr-lpnmcyo "toothache kit". This contains oil of cloves and a paste, which can be applied over the exposed tooth to decrease sensitivity. Apply an ice pack (ice cubes in a plastic bag, wrapped in a towel) over the injured area for 20 minutes every 12 hours the first day for pain relief. Continue this 34 times a day until the pain and swelling goes away. You may use acetaminophen or ibuprofen to control pain, unless another medicine was prescribed. If you have chronic liver or kidney disease or ever had a stomach ulcer or GI bleeding, talk with your doctor before using these medicines. An antibiotic will be prescribed. Take it as directed until completed, even if you are feeling better sooner. Follow-up care Follow up as directed with a dentist or oral surgeon. Even though your pain may improve with the treatment given today, only a dentist or oral surgeon can provide full treatment for this problem. When to seek medical care Get prompt medical attention or contact your doctor if any of the following occur: Your face or eyelid becomes swollen or red Pain worsens or spreads to the neck Fever over 100.4F (38.0C) Unusual drowsiness; headache or stiff neck; weakness, or fainting Pus drains from the gum or tooth Difficulty talking, swallowing or breathing Unable to open your mouth wide Dental Cavity A dental cavity is a pit or crater in the enamel surface of the tooth. This exposes the sensitive inner layer of the tooth and causes pain. If untreated, the cavity will get bigger and may cause an infection or abscess in the root of the tooth. An infection in the tooth is a much more serious problem and may require a root canal or removal of the entire tooth. The tooth pain may be made worse by drinking hot or cold fluids. It may spread from the tooth to the ear or jaw on the same side. Home Care: Avoid hot and cold foods, and liquids since your tooth may be sensitive to temperature changes. If your tooth is chipped or cracked, or if there is a large open cavity, apply OIL OF CLOVES (available nyhq-pty-whybzdj in drug stores) directly to the tooth to reduce pain. Some pharmacies carry an pooz-qsk-ghdkkgi "toothache kit." This contains oil of cloves and a paste, which can be applied over the exposed tooth to decrease sensitivity. An ice pack on your jaw over the sore area may help to reduce pain. You may use acetaminophen (Tylenol) or ibuprofen (Motrin, Advil) to control pain, unless another pain medicine was prescribed. [ NOTE: If you have liver disease or ever had a stomach ulcer, talk with your doctor before using these medicines.] If you have signs of an infection, an antibiotic will be given. Take it as directed. Follow-Up with your dentist as directed. Although your pain may go away with the treatment given, only a dentist can fully evaluate and treat this problem to prevent further tooth damage. Get Prompt Medical Attention if any of the following occur: Redness or swelling of the face Pain worsens or spreads to the neck Fever over 100.5 F (38C) Unusual drowsiness; headache or stiff neck; weakness or fainting Pus drains from the tooth or gum Difficulty swallowing or breathing Dental Pain A crack or cavity in the tooth, which exposes the sensitive inner area of the tooth can cause tooth pain. An infection in the gum or the root of the tooth can cause pain and swelling. The pain is often made worse by drinking hot or cold fluids, or biting on hard foods. Pain may spread from the tooth to the ear or jaw on the same side. Home Care: Avoid hot and cold foods and liquids since your tooth may be sensitive to temperature changes. If your tooth is chipped or cracked, or if there is a large open cavity, apply OIL OF CLOVES (available xhqr-zkd-shsqwgk in drug stores) directly to the tooth to reduce pain. Some pharmacies carry an ckcu-qrd-gslmflb "toothache kit." This contains a paste, which can be applied over the exposed tooth to decrease sensitivity. A cold pack on your jaw over the sore area may help reduce pain. You may use acetaminophen (Tylenol) or ibuprofen (Motrin, Advil) to control pain, unless another medicine was prescribed. [ NOTE: If you have chronic liver or kidney disease or ever had a stomach ulcer or GI bleeding, talk with your doctor before using these medicines.] If you have signs of an infection, an antibiotic will be given. Take it as directed. Follow-Up as directed with a dentist. Your pain may go away with the treatment given. However, only a dentist can fully evaluate and treat the cause and prevent the pain from coming back again. TOOTHACHE IS A SIGN OF DISEASE IN YOUR TOOTH AND SHOULD BE EXAMINED AND TREATED BY A DENTIST. Get Prompt Medical Attention if any of the following occur: Your face becomes swollen or red Pain worsens or spreads to the neck Fever over 100.4 F (38.0 C) Unusual drowsiness; headache or stiff neck; weakness or fainting Pus drains from the tooth Difficulty swallowing or breathing Penicillin V Potassium Oral tablet What is this medicine? PENICILLIN V (pen i SILL in V) is a penicillin antibiotic. It is used to treat certain kinds of bacterial infections. It will not work for colds, flu, or other viral infections. How should I use this medicine? Take this medicine by mouth with a full glass of water. Follow the directions on the prescription label. Take your medicine at regular intervals. Do not take your medicine more often than directed. Take all of your medicine as directed even if you think your are better. Do not skip doses or stop your medicine early. Talk to your media job titles regarding the use of this medicine in children. While this drug may be prescribed for selected conditions, precautions do apply. What side effects may I notice from receiving this medicine? Side effects that you should report to your doctor or health primary care provider as soon as possible: allergic reactions like skin rash or hives, swelling of the face, lips, or tongue breathing problems fever new symptoms of infection redness, blistering, peeling or loosening of the skin, including inside the mouth unusually weak or tired Side effects that usually do not require medical attention (report to your doctor or health primary care provider if they continue or are bothersome): diarrhea headache nausea, vomiting sore mouth or tongue stomach upset What may interact with this medicine? control pills methotrexate other antibiotics probenecid some vaccines What if I miss a dose? If you miss a dose, take it as soon as you can. If it is almost time for your next dose, take only that dose. Do not take double or extra doses. Where should I keep my medicine? Keep out of the reach of children. Store at room temperature between 15 and 30 degrees C (59 and 86 degrees F). Keep container tightly closed. Throw away any unused medicine after the expiration date. What should I tell my health care provider before I take this medicine? They need to know if you have any of these conditions: asthma bowel disease, like colitis eczema kidney disease an unusual or allergic reaction to penicillin, cephalosporins, other antibiotics or medicines, foods, tartrazine or other dyes, or preservatives or trying to get breast-feeding What should I watch for while using this medicine? Tell your doctor or health primary care provider if your symptoms do not improve. Do not treat diarrhea with over the counter products. Contact your doctor if you have diarrhea that lasts more than 2 days or if it is severe and watery. If you have diabetes, you may get a false-positive result for sugar in your urine. Check with your doctor or health primary care provider. control pills may not work properly while you are taking this medicine. Talk to your doctor about using an extra method of control. Tramadol Hydrochloride Oral tablet What is this medicine? TRAMADOL (TRA ma dole) is a pain reliever. It is used to treat moderate to severe pain in adults. How should I use this medicine? Take this medicine by mouth with a full glass of water. Follow the directions on the prescription label. If the medicine upsets your stomach, take it with food or milk. Do not take more medicine than you are told to take. Talk to your media job titles regarding the use of this medicine in children. Special care may be needed. What side effects may I notice from receiving this medicine? Side effects that you should report to your doctor or health primary care provider as soon as possible: allergic reactions like skin rash, itching or hives, swelling of the face, lips, or tongue breathing difficulties, wheezing confusion itching light headedness or fainting spells redness, blistering, peeling or loosening of the skin, including inside the mouth seizures Side effects that usually do not require medical attention (report to your doctor or health primary care provider if they continue or are bothersome): constipation dizziness drowsiness headache nausea, vomiting What may interact with this medicine? Do not take this medicine with any of the following medications: MAOIs like Carbex, Eldepryl, Marplan, Nardil, and Parnate This medicine may also interact with the following medications: alcohol or medicines that contain alcohol antihistamines benzodiazepines bupropion carbamazepine or oxcarbazepine clozapine cyclobenzaprine digoxin furazolidone linezolid medicines for depression, anxiety, or psychotic disturbances medicines for migraine headache like almotriptan, eletriptan, frovatriptan, naratriptan, rizatriptan, sumatriptan, zolmitriptan medicines for pain like pentazocine, buprenorphine, butorphanol, meperidine, nalbuphine, and propoxyphene medicines for sleep muscle relaxants naltrexone phenobarbital phenothiazines like perphenazine, thioridazine, chlorpromazine, mesoridazine, fluphenazine, prochlorperazine, promazine, and trifluoperazine procarbazine warfarin What if I miss a dose? If you miss a dose, take it as soon as you can. If it is almost time for your next dose, take only that dose. Do not take double or extra doses. Where should I keep my medicine? Keep out of the reach of children. Store at room temperature between 15 and 30 degrees C (59 and 86 degrees F). Keep container tightly closed. Throw away any unused medicine after the expiration date. What should I tell my health care provider before I take this medicine? They need to know if you have any of these conditions: brain tumor depression drug abuse or addiction head injury if you frequently drink alcohol containing drinks kidney disease or trouble passing urine liver disease lung disease, asthma, or breathing problems seizures or epilepsy suicidal thoughts, plans, or attempt; a previous suicide attempt by you or a family member an unusual or allergic reaction to tramadol, codeine, other medicines, foods, dyes, or preservatives or trying to get breast-feeding What should I watch for while using this medicine? Tell your doctor or health primary care provider if your pain does not go away, if it gets worse, or if you have new or a different type of pain. You may develop tolerance to the medicine. Tolerance means that you will need a higher dose of the medicine for pain relief. Tolerance is normal and is expected if you take this medicine for a long time. Do not suddenly stop taking your medicine because you may develop a severe reaction. Your body becomes used to the medicine. This does NOT mean you are addicted. Addiction is a behavior related to getting and using a drug for a non-medical reason. If you have pain, you have a medical reason to take pain medicine. Your doctor will tell you how much medicine to take. If your doctor wants you to stop the medicine, the dose will be slowly lowered over time to avoid any side effects. You may get drowsy or dizzy. Do not drive, use machinery, or do anything that needs mental alertness until you know how this medicine affects you. Do not stand or sit up quickly, especially if you are an older patient. This reduces the risk of dizzy or fainting spells. Alcohol can increase or decrease the effects of this medicine. Avoid alcoholic drinks. You may have constipation. Try to have a bowel movement at least every 2 to 3 days. If you do not have a bowel movement for 3 days, call your doctor or health primary care provider. Your mouth may get dry. Chewing sugarless gum or sucking hard candy, and drinking plenty of water may help. Contact your doctor if the problem does not go away or is severe. You have been given the following additional information: Tooth Abscess Dental Cavity Dental Pain Penicillin V Potassium Oral tablet Tramadol Hydrochloride Oral tablet (Electronically signed by Carmela Lyn A.R.N.P. 06/23/2016 18:27)
--- NOTE | 2016-06-23 18:27 | ED MED RECONCILIATION SUMMARY ---
Patient: SUMIT SUAZO Medication Reconciliation Report [facility] VisitID: [id number] [address] [place] [address] 41y, M Registration Date/Time: 06/23/2016 Weight: 77.1 kg Height/Length: 68 in. BMI: 25.9 ALLERGIES: Lactose Intolerance (GI), Vicodin The patient's Home Medications are listed below: THE FOLLOWING MEDICATIONS NEED TO BE RECONCILED: PriLOSEC Oral The source(s) of the original Home Medication information: Not obtained. The following Medications were given to the patient in the Emergency Department: None. The following Medications were prescribed to the patient: Penicillin V 500mg: take 1 tab orally every 6 hours for 10 days. Dispense forty (40). No refill -- Carmela Lyn A.R.N.P. Ultram 50 mg tablets: take 1-2 orally every 6 hours as needed for pain. Dispense twenty (20). No refills. Substitution is permissible. -- Carmela Lyn A.R.N.P.
--- NOTE | 2016-06-23 18:27 | ED MED RECONCILIATION SUMMARY ---
Patient: SUMIT SUAZO Medication Reconciliation Report [facility] VisitID: [id number] [address] [place] [address] 41y, M Registration Date/Time: 06/23/2016 Weight: 77.1 kg Height/Length: 68 in. BMI: 25.9 ALLERGIES: Lactose Intolerance (GI), Vicodin The patient's Home Medications are listed below: THE FOLLOWING MEDICATIONS NEED TO BE RECONCILED: PriLOSEC Oral The source(s) of the original Home Medication information: Not obtained. The following Medications were given to the patient in the Emergency Department: None. The following Medications were prescribed to the patient: Penicillin V 500mg: take 1 tab orally every 6 hours for 10 days. Dispense forty (40). No refill -- Carmela Lyn A.R.N.P. Ultram 50 mg tablets: take 1-2 orally every 6 hours as needed for pain. Dispense twenty (20). No refills. Substitution is permissible. -- Carmela Lyn A.R.N.P.
== END 2016-06-23 17:57 | disposition home or self-care (01) ==
LOC: ED SRH 17:32
DX: K04.7 Periapical abscess without sinus (principal); Z72.0 Tobacco use; Z79.899 Other long term (current) drug therapy

== ENCOUNTER 2016-07-27 20:05 | Emergency (ER) | payer OTHER ==
--- NOTE | 2016-07-27 20:28 | ED NURSING NOTES ---
Clinical Report - Nurses [facility] [address] [place] [address] 07/27/2016 20:06 Patient: SUMIT SUAZO TRIAGE Triage time 2009. Acuity: LEVEL 4. 20:10. --20:18 Natalie Roberts R.N. 20:10 07/27/16. BP: 157/112. HR: 89. RR: 20. O2 saturation: 100%. Temp: 100.1 F. Pain level now: 11/21. --20:18 Natalie Roberts R.N. Triage time 2009. Chief Complaint: SWELLING OF JAW / FACE and (dental pain with swollen face). --21:22 Natalie Roberts R.N. Weight: 77.1 kg stated. Height/Length: 68 inches Per Patient. BMI: 25.9. --20:15 Natalie Roberts R.N. Medications PriLOSEC Oral. --20:16 Natalie Roberts R.N. Penicillin V Potassium Oral (not sure of dosage, states he has had 3 doses of this ). --20:16 Natalie Roberts R.N. Allergies Lactose Intolerance (GI). Vicodin.(vomiting) --20:16 Natalie Roberts R.N. History Arrived by private vehicle. Historian: patient. Accompanied by friend. No primary care physician. Onset. (off and on x 1 month, was seen here and started on antibiotics. "I missed appt with dentest" symptoms worsening again, went to [facility] yesterday. got rx for Penicillin and got local dental injection. no po pain meds). He has had facial pain and fever. He has had swelling of the face and swelling of the jaw. SOCIAL HX: Light tobacco smoker (cigarette)- less than 1/2 a pack per day. Occasional alcohol use. History of drug use: marijuana. --20:18 Natalie Roberts R.N. PROBLEMS: Dental Abscess. Atypical Chest Pain. Abdominal Pain. Abnormal Test. Gastroesophageal Reflux Disease. Chest Injury. URI. Migraine Headache. --20:15 Natalie Roberts R.N. ADDITIONAL SURGERIES: Testicle surgery at age 7 . --20:15 Natalie Roberts R.N. Interventions ID band on patient. To treatment room. --20:18 Natalie Roberts R.N. PHYSICAL ASSESSMENT 20:10. Ambulatory to room. GENERAL / NEURO / PSYCH: Alert. Oriented X 4. Appears in pain. HEENT: Facial swelling present. Muffled voice. Dental tenderness. Dental decay. CVS: Capillary refill less than 2 seconds. SKIN: Skin is warm and dry. --21:20 Natalie Roberts R.N. NURSING PROGRESS NOTES 20:30 07/27/2016 Oxycodone-APAP (Oxycodone-Acetaminophen) PO 5/325 mg Tablets 1 tab given. Allergies verified, confirmed 5 rights and sedative warning given to the patient. --20:35 Natalie Roberts R.N. 20:31 07/27/2016 Clindamycin IM 600 mg given. Given in the right ventral gluteus and left ventral gluteus (split dose). --20:36 Natalie Roberts R.N. 20:33 07/27/2016 Ibuprofen PO Tablets 800 mg given. Allergies verified and confirmed 5 rights. --21:05 Natalie Roberts R.N. 20:10. Head of bed elevated. Reassurance given. Patient identifiers checked. Call light placed in reach. Side rails up. Bed placed in lowest position. Patient ready for evaluation- chart flagged. --21:21 Natalie Roberts R.N. 21:30. ( pt given po meds. resting in dark quiet). --21:21 Natalie Roberts R.N. DISPOSITION / DISCHARGE 20:45. Condition at departure: unchanged and stable. No learning barriers present. Discharge instructions provided and reviewed with the patient and spouse. Reviewed medication(s) (cleocin, motrin, percocet,). Patient and spouse verbalized understanding. Written instructions provided in Italian. The patient was discharged home and accompanied by spouse. He left the Emergency Department ambulatory and via private vehicle. Patient driving. --21:22 Natalie Roberts R.N. 20:45 07/27/16. BP: 165/102. BP. Nurse practitioner notified. HR: 78. RR: 18. O2 saturation: 98%. Temp: deferred. Pain level now: 11/21. --21:22 Natalie Roberts R.N. Locked/Released at 07/27/2016 21:23 by Natalie Roberts R.N.
--- NOTE | 2016-07-27 20:28 | ED CLINICAL REPORT ---
Clinical Report - Physicians/Mid Levels [facility] [address] [place] [address] 07/27/2016 20:06 [id number] Time Seen: 20:10; upon arrival, initial patient contact, initial documentation, patient care assumed. Arrived- By private vehicle. Historian- patient. HISTORY OF PRESENT ILLNESS Chief Complaint: DENTAL PAIN. This started about 1 months ago or more and is still present and worsening. It was gradual in onset. Pain described as severe. No sore throat, mouth sores, nasal discharge or congestion or ear pain. He has had severe toothache involving multiple teeth (right upper molar). He has had severe swelling of the right face. He has had severe right-sided facial pain. (says he missed his dental appt). Similar symptoms previously: Chronically, milder. Recent medical care: The patient was seen recently at this facility and another facility in the emergency department. ( [facility], states a dental block was done and rx pcn, took x3 pills, no rx pain meds given, was txed here in June, by me, for same thing). REVIEW OF SYSTEMS No fever or difficulty breathing. All systems otherwise negative, except as recorded above. PAST HISTORY See nurses notes. PROBLEMS: Dental Abscess. Atypical Chest Pain. Abdominal Pain. Abnormal Test. Gastroesophageal Reflux Disease. Chest Injury. URI. Migraine Headache. --20:15 Natalie Roberts RMay. ADDITIONAL SURGERIES: Testicle surgery at age 7 . --20:15 Natalie Roberts R.N. SOCIAL HISTORY Light tobacco smoker. Occasional alcohol use. History of heavy drug use: marijuana. Recently used drugs just prior to arrival. Under influence in ED. No recent travel. Is a local resident. FAMILY HISTORY Negative. ADDITIONAL NOTES The nursing notes have been reviewed with agreement regarding the chief complaint, HPI, ROS, PMH and patient medications and allergies. PHYSICAL EXAM Vital Signs: 07/27/2016 20:10 BP: 157/112. HR: 89. RR: 20. O2 saturation: 100%. Temp: 100.1 F. Pain level now: 11/21. Have been reviewed as abnormal and appear to be correct. Hypertensive. Heart rate normal. Respiratory rate normal. Febrile. Oxygen saturation normal. Appearance: Alert. No acute distress. (pt and room smell strongly of marijuana). Head: Abnormal external inspection. Moderate swelling of the right maxilla. Eyes: Pupils equal, round and reactive to light. Conjunctivae and eyelids normal. ENT: Moderate, extensive dental decay (upper right second premolar, upper right first molar, second molar and third molar) (premolar 2, molar 1,2,3 all gone, no gum swelling, several other teeth with decay or broken). No gingival tenderness, induration, swelling or fluctuance. Ears normal. Nose normal. Pharynx normal. Lips normal. Gums normal. No trismus present. Uvula midline. Neck: Normal inspection. Trachea midline. No adenopathy. Thyroid normal. Neck supple. Respiratory: No respiratory distress. Skin: Normal skin color. No rash. Normal skin turgor. Extremities: Extremities exhibit normal ROM. Extremities nontender. Neuro: Oriented X 3. No motor deficit. No sensory deficit. PROGRESS AND PROCEDURES Course of Care: pt has chacho for #5 er visits, see report for full details. Patient counseled in person regarding the patient's stable condition and diagnosis. Differential Diagnosis: Other possible considerations: substance abuse, dental pain abscess, caries. Above considerations are based on history and physical exam. Differential diagnosis was discussed with patient. Disposition: Discharged home in good and improved condition (20:28). Condition: good and stable. CLINICAL IMPRESSION Periapical dental abscess. No sinus tract or Zana's angina. Acute fever INSTRUCTIONS Alternate Tylenol (Acetaminophen) and Motrin (Ibuprofen) for fever, temperature greater than 101 degrees orally. Take according to label instructions. Warnings: CONTROLLED SUBSTANCE WARNINGS: The reason for controlled substance is related to an acute illness. Discussed warnings with the patient (do NOT mix percocet with any drugs or alcohol). GENERAL WARNINGS: Return or contact your physician immediately if your condition worsens or changes unexpectedly, if not improving as expected, or if other problems arise. Specifically return if problem worsens. Prescription Medications: Cleocin 300 mg: take 1 capsule orally every 6 hours for 7 days. No refills. Substitution is permissible. Motrin 800 mg tablets: take 1 tablet orally every 8 hours as needed for pain. Dispense thirty (30). No refills. Substitution is permissible. Percocet 5 mg/325 mg: take 1 tablet orally every 6 hours as needed for pain. Dispense fifteen (15). No refills. Substitution is permissible. Follow-up: Follow up with a dentist in about two days even if well. Call for an appointment. Summary of care provided to patient. Understanding of the discharge instructions verbalized by patient. (Electronically signed by Carmela Lyn A.R.N.P. 07/27/2016 21:34)
--- NOTE | 2016-07-27 20:29 | ED ORDER SUMMARY ---
..... Patient: SUMIT SUAZO OrderSheet [facility] VisitID: [id number] [place] [address] 41y, M Registration Date/Time: 07/27/2016 ORDER SHEET Weight: 77.1 kg (stated) Allergies: Lactose Intolerance (GI), Vicodin GENERAL ORDERS: MEDICATION ORDERS: Oxycodone-APAP PO 5/325 mg (HIGH ALERT MEDICATION, NOW) (20:23 07/27/2016 HBivens A.R.N.P.) (Ack 20:26 DDean R.N.) (20:35 DDean R.N.) Clindamycin IM 600 mg (NOW) (20:24 07/27/2016 HBivens A.R.N.P.) (Ack 20:26 DDean R.N.) (20:36 DDean R.N.) Ibuprofen PO 800 mg (NOW) (21:04 07/27/2016 DDean R.N. per protocol) (21:05 DDean R.N.) IV FLUIDS: ORDER SHEET NOTES: [Electronically signed by Natalie Roberts R.N. (21:23 07/27/2016)] [Electronically signed by Carmela LynR.N.P. (21:34 07/27/2016)] [Electronically locked/signed by Natalie Roberts R.N. (21:23 07/27/2016)]
--- NOTE | 2016-07-27 20:29 | ED ORDER SUMMARY ---
..... Patient: SUMIT SUAZO OrderSheet [facility] VisitID: [id number] [place] [address] 41y, M Registration Date/Time: 07/27/2016 ORDER SHEET Weight: 77.1 kg (stated) Allergies: Lactose Intolerance (GI), Vicodin GENERAL ORDERS: MEDICATION ORDERS: Oxycodone-APAP PO 5/325 mg (HIGH ALERT MEDICATION, NOW) (20:23 07/27/2016 HBivens A.R.N.P.) (Ack 20:26 DDean R.N.) (20:35 DDean R.N.) Clindamycin IM 600 mg (NOW) (20:24 07/27/2016 HBivens A.R.N.P.) (Ack 20:26 DDean R.N.) (20:36 DDean R.N.) Ibuprofen PO 800 mg (NOW) (21:04 07/27/2016 DDean R.N. per protocol) (21:05 DDean R.N.) IV FLUIDS: ORDER SHEET NOTES: [Electronically signed by Natalie Roberts R.N. (21:23 07/27/2016)] [Electronically signed by Carmela LynR.N.P. (21:34 07/27/2016)] [Electronically locked/signed by Natalie Roberts R.N. (21:23 07/27/2016)]
--- NOTE | 2016-07-27 21:34 | ED DISCHARGE INSTRUCTIONS ---
Patient: SUMIT SUAZO General Instructions [facility] VisitID: [id number] [place] [address] 41y, M Registration Date/Time: 07/27/2016 Periapical dental abscess. No sinus tract or Zana's angina. Acute fever INSTRUCTIONS Alternate Tylenol (Acetaminophen) and Motrin (Ibuprofen) for fever, temperature greater than 101 degrees orally. Take according to label instructions. Warnings: CONTROLLED SUBSTANCE WARNINGS: The reason for controlled substance is related to an acute illness. Discussed warnings with the patient (do NOT mix percocet with any drugs or alcohol). GENERAL WARNINGS: Return or contact your physician immediately if your condition worsens or changes unexpectedly, if not improving as expected, or if other problems arise. Specifically return if problem worsens. Prescription Medications: Cleocin 300 mg: take 1 capsule orally every 6 hours for 7 days. No refills. Substitution is permissible. Motrin 800 mg tablets: take 1 tablet orally every 8 hours as needed for pain. Dispense thirty (30). No refills. Substitution is permissible. Percocet 5 mg/325 mg: take 1 tablet orally every 6 hours as needed for pain. Dispense fifteen (15). No refills. Substitution is permissible. Follow-up: Follow up with a dentist in about two days even if well. Call for an appointment. Summary of care provided to patient. Understanding of the discharge instructions verbalized by patient. ADDITIONAL INFORMATION Febrile Illness, Uncertain Cause (Adult) You have a fever, but the cause is not certain. A fever is a natural reaction of the body to an illness such as infections due to a virus or bacteria. In most cases, the temperature itself is not harmful. It actually helps the body fight infections. A fever does not need to be treated unless you feel very uncomfortable. Sometimes a fever can be an early sign of a more serious infection. Therefore, you should watch for the signs listed below. Home Care: If signs and symptoms are severe, rest at home for the first 2-3 days. When you resume activity, don't let yourself get too tired. Stay away from cigarette smoke (yours and other peoples). You may use acetaminophen (Tylenol) or ibuprofen (Motrin, Advil) to control fever or pain, unless another medicine was prescribed. NOTE: If you have chronic liver or kidney disease or ever had a stomach ulcer or GI bleeding, talk with your doctor before using these medicines. (Aspirin should never be used in anyone under 18 years of age who is ill with a fever. It may cause severe liver damage.) Your appetite may be poor, so a light diet is fine. Avoid dehydration by drinking 6-8 glasses of fluid per day (water, sport drinks such as Gatorade, sodas without caffeine, juices, tea, soup). Extra fluid will help loosen secretions in the nose and lungs. Skhu-irv-pzjcenj products will not shorten the duration of the illness but may be helpful for the following symptoms: cough (Robitussin DM); sore throat (Chloraseptic lozenges or spray); nasal and sinus congestion (Actifed or Sudafed). NOTE: Do not use decongestants if you have high blood pressure. Follow Up with your doctor or as advised if you do not start to improve over the next week. Get Prompt Medical Attention if any of the following occur: Cough with lots of colored sputum (mucus) or blood in your sputum Chest pain, shortness of breath, wheezing or difficulty breathing Severe headache, face, neck, throat or ear pain Feeling drowsy or confused Abdominal pain, repeated vomiting or diarrhea Joint pain or a new rash Burning when urinating Fever of 100.4F (38C) oral or higher, not better with fever medication Feeling weak or dizzy Convulsion Taking Your Child's Temperature If your child feels hot, then check the temperature. Under 3 months : Start with a AXILLARY temperature. If it is above 99.0 F (37.2 C), take a RECTAL temperature. 3 months to 4 years : Measure a RECTAL temperature, or an EAR temperature. Over 4 years : Measure an ORAL temperature. Rectal Temperature is the most accurate. Ear temperature is not as accurate as a rectal or oral temperature, but is more convenient and can be used in the 3 month to 4 year old. Other methods such as plastic strips , forehead devices , and pacifier thermometers are even less accurate and they are not recommended. If you do not know how to use a thermometer, ask your nurse or pharmacist. Oral Method: Normal: 98.6 F (37.0 C). Range of normal: Up to 99.0 F (37.2 C). Recommended Age: Use this method for children older than 4 or 5 years of age, only if cooperative. 1) Wait at least 20 minutes after drinking or eating before taking an oral temperature. 2) Place the tip of a the thermometer under the child's tongue. 3) Have child close lips gently, without biting on the thermometer. 4) Keep under the tongue until the thermometer beeps. 5) Remove thermometer and read the temperature in the display. 6) Clean the thermometer with alcohol, or soap and water after each use. Axillary Method (UNDER THE ARM): Normal: 97.6 F (36.6 C) Range of Normal: Up to 98.6 F (37.0 C) Recommended Age: Use this method for children under 4 years of age or any uncooperative child. 1) Make sure armpit is dry and the child does not have clothing between arm and chest. 2) Place the tip of the thermometer high up in the armpit. 4) Hold the child's arm snug against their body with the thermometer in place until it beeps. 5) Remove thermometer and read the temperature in the display. 6) Clean the thermometer with alcohol, or soap and water after each use. Rectal Method: Normal: 99.6 F (37.6 C). Range of Normal: Up to 100.4 F (38.0 C). Recommended age: Use this method for children under 4 years of age or any uncooperative child. 1) Lubricate the tip of a rectal thermometer with a lubricant such as Vaseline jelly or K-Y jelly. 2) Lay your child face down across your lap, or on his/her side with knees bent toward the chest. Spread buttocks so that the anus can be easily seen. 3) Hold the thermometer between your thumb and index finger with the edge of your hand resting on the buttocks. Slowly and gently insert thermometer into the anus about one inch. The tip should slide in easily. Do not force it since they may cause injury. 4) Do not let go of the thermometer! Hold it carefully in place until it beeps. 5) Remove thermometer and read the temperature in the display. 6) Clean the thermometer with alcohol, or soap and water after each use. When To Seek Help Call your doctor or return here if you have an younger than 3 months with a temperature of 100.4 F (38.0 C) or an older child with a fever higher than 104.0 F (40.0 C). Dental Abscess A dental abscess is an infection of the tooth socket. It often starts with a crack or cavity in the tooth. A pocket of pus forms between the tooth and the bone. The infection causes pain and swelling of the gum, cheek or jaw. The pain is often made worse by drinking hot or cold fluids, or biting on hard foods. Pain may be felt in the facial sinus or in the ear. A severe infection can interfere with swallowing and breathing. In the emergency department or clinic, you will be started on an antibiotic. However, final treatment requires drainage of the pus. This can be done by removing the tooth or performing a root canal. A root canal is done by an oral surgeon and involves drilling an opening in the tooth to drain the pus. After the infection has healed, a crown is placed over the tooth. Home care The following guidelines will help you care for your abscess at home: Avoid hot and cold foods and liquids since your tooth may be sensitive to temperature changes. If your tooth is chipped or cracked, or if there is a large open cavity, applyoil of cloves(available lkfw-inl-ghplmxi in drug stores) directly to the tooth to reduce pain. Some pharmacies carry an ifev-kgj-sndypip "toothache kit". This contains oil of cloves and a paste, which can be applied over the exposed tooth to decrease sensitivity. Apply an ice pack (ice cubes in a plastic bag, wrapped in a towel) over the injured area for 20 minutes every 12 hours the first day for pain relief. Continue this 34 times a day until the pain and swelling goes away. You may use acetaminophen or ibuprofen to control pain, unless another medicine was prescribed. If you have chronic liver or kidney disease or ever had a stomach ulcer or GI bleeding, talk with your doctor before using these medicines. An antibiotic will be prescribed. Take it as directed until completed, even if you are feeling better sooner. Follow-up care Follow up as directed with a dentist or oral surgeon. Even though your pain may improve with the treatment given today, only a dentist or oral surgeon can provide full treatment for this problem. When to seek medical care Get prompt medical attention or contact your doctor if any of the following occur: Your face or eyelid becomes swollen or red Pain worsens or spreads to the neck Fever over 100.4F (38.0C) Unusual drowsiness; headache or stiff neck; weakness, or fainting Pus drains from the gum or tooth Difficulty talking, swallowing or breathing Unable to open your mouth wide Dental Cavity A dental cavity is a pit or crater in the enamel surface of the tooth. This exposes the sensitive inner layer of the tooth and causes pain. If untreated, the cavity will get bigger and may cause an infection or abscess in the root of the tooth. An infection in the tooth is a much more serious problem and may require a root canal or removal of the entire tooth. The tooth pain may be made worse by drinking hot or cold fluids. It may spread from the tooth to the ear or jaw on the same side. Home Care: Avoid hot and cold foods, and liquids since your tooth may be sensitive to temperature changes. If your tooth is chipped or cracked, or if there is a large open cavity, apply OIL OF CLOVES (available rkfn-abp-tkkpfev in drug stores) directly to the tooth to reduce pain. Some pharmacies carry an ydsi-xfm-jvkelhp "toothache kit." This contains oil of cloves and a paste, which can be applied over the exposed tooth to decrease sensitivity. An ice pack on your jaw over the sore area may help to reduce pain. You may use acetaminophen (Tylenol) or ibuprofen (Motrin, Advil) to control pain, unless another pain medicine was prescribed. [ NOTE: If you have liver disease or ever had a stomach ulcer, talk with your doctor before using these medicines.] If you have signs of an infection, an antibiotic will be given. Take it as directed. Follow-Up with your dentist as directed. Although your pain may go away with the treatment given, only a dentist can fully evaluate and treat this problem to prevent further tooth damage. Get Prompt Medical Attention if any of the following occur: Redness or swelling of the face Pain worsens or spreads to the neck Fever over 100.5 F (38C) Unusual drowsiness; headache or stiff neck; weakness or fainting Pus drains from the tooth or gum Difficulty swallowing or breathing Dental Pain A crack or cavity in the tooth, which exposes the sensitive inner area of the tooth can cause tooth pain. An infection in the gum or the root of the tooth can cause pain and swelling. The pain is often made worse by drinking hot or cold fluids, or biting on hard foods. Pain may spread from the tooth to the ear or jaw on the same side. Home Care: Avoid hot and cold foods and liquids since your tooth may be sensitive to temperature changes. If your tooth is chipped or cracked, or if there is a large open cavity, apply OIL OF CLOVES (available ztrk-esp-rfmuodu in drug stores) directly to the tooth to reduce pain. Some pharmacies carry an mbjr-ekz-leqseqd "toothache kit." This contains a paste, which can be applied over the exposed tooth to decrease sensitivity. A cold pack on your jaw over the sore area may help reduce pain. You may use acetaminophen (Tylenol) or ibuprofen (Motrin, Advil) to control pain, unless another medicine was prescribed. [ NOTE: If you have chronic liver or kidney disease or ever had a stomach ulcer or GI bleeding, talk with your doctor before using these medicines.] If you have signs of an infection, an antibiotic will be given. Take it as directed. Follow-Up as directed with a dentist. Your pain may go away with the treatment given. However, only a dentist can fully evaluate and treat the cause and prevent the pain from coming back again. TOOTHACHE IS A SIGN OF DISEASE IN YOUR TOOTH AND SHOULD BE EXAMINED AND TREATED BY A DENTIST. Get Prompt Medical Attention if any of the following occur: Your face becomes swollen or red Pain worsens or spreads to the neck Fever over 100.4 F (38.0 C) Unusual drowsiness; headache or stiff neck; weakness or fainting Pus drains from the tooth Difficulty swallowing or breathing Fever Control (Adult) A fever is a natural reaction of the body to an illness. In most cases, the temperature itself is not harmful. It actually helps the body fight infections. A fever does not need to be treated unless you feel very uncomfortable. Home Care If you feel warm, check your temperature. If you feel very uncomfortable and your temperature is at or higher than 100.4F (38C) oral, you may take acetaminophen (Tylenol) every 4 to 6 hours. If you cant take or keep down oral medicine, ask your pharmacist for Tylenol suppositories, which you can get without a prescription. If the fever does not respond to acetaminophen within 1 hour, take ibuprofen (Advil or Motrin). If this works, keep taking the ibuprofen every 6 to 8 hours. Note: If you have chronic liver or kidney disease or ever had a stomach ulcer or GI bleeding, talk with your doctor before using these medications. If either medication alone does not keep the fever down, you may alternate the two medicines every 3 to 4 hours, only if your healthcare provider has instructed you to do so. For example, take Motrin then wait 3 hours, take Tylenol then wait 3 hours, take Motrin, and so on. Follow your healthcare providers instructions exactly. Clothing: Keep clothing light because excess body heat is lost through the skin. The fever will go up if you wear extra layers or wrap in blankets. Fluids: Fever causes the body to lose water through evaporation. Drink plenty of fluids such as water, juice, clear sodas, kolby ignacia, or lemonade. Do not use aspirin in anyone under 18 years of age who is ill with a fever. It can cause severe liver damage. Follow Up with your doctor or as advised by our staff if you do not get better after 48 hours. Get Prompt Medical Attention if any of the following occur: Fever does not get better after taking fever medication Fast or difficult breathing Earache, sinus pain, stiff or painful neck, headache, repeated diarrhea or vomiting You feel unusually irritable, drowsy, or confused A rash appears You feel weak or dizzy, or that you might faint Clindamycin Hydrochloride Oral capsule What is this medicine? CLINDAMYCIN (KLIN da ANH sin) is a lincosamide antibiotic. It is used to treat certain kinds of bacterial infections. It will not work for colds, flu, or other viral infections. How should I use this medicine? Take this medicine by mouth with a full glass of water. Follow the directions on the prescription label. You can take this medicine with food or on an empty stomach. If the medicine upsets your stomach, take it with food. Take your medicine at regular intervals. Do not take your medicine more often than directed. Take all of your medicine as directed even if you think your are better. Do not skip doses or stop your medicine early. Talk to your air conditioning insulation installer regarding the use of this medicine in children. Special care may be needed. What side effects may I notice from receiving this medicine? Side effects that you should report to your doctor or health career information specialist as soon as possible: allergic reactions like skin rash, itching or hives, swelling of the face, lips, or tongue dark urine pain on swallowing redness, blistering, peeling or loosening of the skin, including inside the mouth unusual bleeding or bruising unusually weak or tired yellowing of eyes or skin Side effects that usually do not require medical attention (report to your doctor or health career information specialist if they continue or are bothersome): diarrhea itching in the rectal or genital area joint pain nausea, vomiting stomach pain What may interact with this medicine? chloramphenicol erythromycin kaolin products What if I miss a dose? If you miss a dose, take it as soon as you can. If it is almost time for your next dose, take only that dose. Do not take double or extra doses. Where should I keep my medicine? Keep out of the reach of children. Store at room temperature between 20 and 25 degrees C (68 and 77 degrees F). Throw away any unused medicine after the expiration date. What should I tell my health care provider before I take this medicine? They need to know if you have any of these conditions: kidney disease liver disease stomach problems like colitis an unusual or allergic reaction to clindamycin, lincomycin, or other medicines, foods, dyes like tartrazine or preservatives or trying to get breast-feeding What should I watch for while using this medicine? Tell your doctor or healthcare professional if your symptoms do not start to get better or if they get worse. Do not treat diarrhea with over the counter products. Contact your doctor if you have diarrhea that lasts more than 2 days or if it is severe and watery. Ibuprofen Oral tablet What is this medicine? IBUPROFEN (eye BYOO proe fen) is a non-steroidal anti-inflammatory drug (NSAID). It is used for dental pain, fever, headaches or migraines, osteoarthritis, rheumatoid arthritis, or painful monthly periods. It can also relieve minor aches and pains caused by a cold, flu, or sore throat. How should I use this medicine? Take this medicine by mouth with a glass of water. Follow the directions on the prescription label. Take this medicine with food if your stomach gets upset. Try to not lie down for at least 10 minutes after you take the medicine. Take your medicine at regular intervals. Do not take your medicine more often than directed. A special MedGuide will be given to you by the pharmacist with each prescription and refill. Be sure to read this information carefully each time. Talk to your air conditioning insulation installer regarding the use of this medicine in children. Special care may be needed. What side effects may I notice from receiving this medicine? Side effects that you should report to your doctor or health career information specialist as soon as possible: allergic reactions like skin rash, itching or hives, swelling of the face, lips, or tongue black or bloody stools, blood in the urine or in vomit breathing problems changes in vision chest pain general ill feeling or flu-like symptoms nausea or vomiting redness, blistering, peeling or loosening of the skin, including inside the mouth slurred speech or weakness on one side of the body stomach pain unexplained weight gain or swelling unusually weak or tired yellowing of eyes or skin Side effects that usually do not require medical attention (report to your doctor or health career information specialist if they continue or are bothersome): constipation or diarrhea dizziness gas or heartburn stomach upset What may interact with this medicine? Do not take this medicine with any of the following medications: cidofovir ketorolac methotrexate pemetrexed This medicine may also interact with the following medications: alcohol aspirin diuretics lithium other drugs for inflammation like prednisone warfarin What if I miss a dose? If you miss a dose, take it as soon as you can. If it is almost time for your next dose, take only that dose. Do not take double or extra doses. Where should I keep my medicine? Keep out of the reach of children. Store at room temperature between 15 and 30 degrees C (59 and 86 degrees F). Keep container tightly closed. Throw away any unused medicine after the expiration date. What should I tell my health care provider before I take this medicine? They need to know if you have any of these conditions: asthma cigarette smoker drink more than 3 alcohol containing drinks a day heart disease or circulation problems such as heart failure or leg edema (fluid retention) high blood pressure kidney disease liver disease stomach bleeding or ulcers an unusual or allergic reaction to ibuprofen, aspirin, other NSAIDS, other medicines, foods, dyes, or preservatives or trying to get breast-feeding What should I watch for while using this medicine? Tell your doctor or healthcare professional if your symptoms do not start to get better or if they get worse. This medicine does not prevent heart attack or stroke. In fact, this medicine may increase the chance of a heart attack or stroke. The chance may increase with longer use of this medicine and in people who have heart disease. If you take aspirin to prevent heart attack or stroke, talk with your doctor or health career information specialist. Do not take other medicines that contain aspirin, ibuprofen, or naproxen with this medicine. Side effects such as stomach upset, nausea, or ulcers may be more likely to occur. Many medicines available without a prescription should not be taken with this medicine. This medicine can cause ulcers and bleeding in the stomach and intestines at any time during treatment. Ulcers and bleeding can happen without warning symptoms and can cause . To reduce your risk, do not smoke cigarettes or drink alcohol while you are taking this medicine. You may get drowsy or dizzy. Do not drive, use machinery, or do anything that needs mental alertness until you know how this medicine affects you. Do not stand or sit up quickly, especially if you are an older patient. This reduces the risk of dizzy or fainting spells. This medicine can cause you to bleed more easily. Try to avoid damage to your teeth and gums when you brush or floss your teeth. Oxycodone Hydrochloride, Acetaminophen Oral tablet What is this medicine? ACETAMINOPHEN; OXYCODONE (a set a ZEINA jeffrey fen; ox i KOE done) is a pain reliever. It is used to treat mild to moderate pain. How should I use this medicine? Take this medicine by mouth with a full glass of water. Follow the directions on the prescription label. Take your medicine at regular intervals. Do not take your medicine more often than directed. Talk to your air conditioning insulation installer regarding the use of this medicine in children. Special care may be needed. Patients over 65 years old may have a stronger reaction and need a smaller dose. What side effects may I notice from receiving this medicine? Side effects that you should report to your doctor or health career information specialist as soon as possible: allergic reactions like skin rash, itching or hives, swelling of the face, lips, or tongue breathing difficulties, wheezing confusion light headedness or fainting spells severe stomach pain yellowing of the skin or the whites of the eyes Side effects that usually do not require medical attention (report to your doctor or health career information specialist if they continue or are bothersome): dizziness drowsiness nausea vomiting What may interact with this medicine? alcohol antihistamines barbiturates like amobarbital, butalbital, butabarbital, methohexital, pentobarbital, phenobarbital, thiopental, and secobarbital benztropine drugs for bladder problems like solifenacin, trospium, oxybutynin, tolterodine, hyoscyamine, and methscopolamine drugs for breathing problems like ipratropium and tiotropium drugs for certain stomach or intestine problems like propantheline, homatropine methylbromide, glycopyrrolate, atropine, belladonna, and dicyclomine general anesthetics like etomidate, ketamine, nitrous oxide, propofol, desflurane, enflurane, halothane, isoflurane, and sevoflurane medicines for depression, anxiety, or psychotic disturbances medicines for sleep muscle relaxants naltrexone narcotic medicines (opiates) for pain phenothiazines like perphenazine, thioridazine, chlorpromazine, mesoridazine, fluphenazine, prochlorperazine, promazine, and trifluoperazine scopolamine tramadol trihexyphenidyl What if I miss a dose? If you miss a dose, take it as soon as you can. If it is almost time for your next dose, take only that dose. Do not take double or extra doses. Where should I keep my medicine? Keep out of the reach of children. This medicine can be abused. Keep your medicine in a safe place to protect it from theft. Do not share this medicine with anyone. Selling or giving away this medicine is dangerous and against the law. Store at room temperature between 20 and 25 degrees C (68 and 77 degrees F). Keep container tightly closed. Protect from light. This medicine may cause accidental overdose and if it is taken by other adults, children, or pets. Flush any unused medicine down the toilet to reduce the chance of harm. Do not use the medicine after the expiration date. What should I tell my health care provider before I take this medicine? They need to know if you have any of these conditions: brain tumor Crohn's disease, inflammatory bowel disease, or ulcerative colitis drink more than 3 alcohol containing drinks per day drug abuse or addiction head injury heart or circulation problems kidney disease or problems going to the bathroom liver disease lung disease, asthma, or breathing problems an unusual or allergic reaction to acetaminophen, oxycodone, other opioid analgesics, other medicines, foods, dyes, or preservatives or trying to get breast-feeding What should I watch for while using this medicine? Tell your doctor or health career information specialist if your pain does not go away, if it gets worse, or if you have new or a different type of pain. You may develop tolerance to the medicine. Tolerance means that you will need a higher dose of the medication for pain relief. Tolerance is normal and is expected if you take this medicine for a long time. Do not suddenly stop taking your medicine because you may develop a severe reaction. Your body becomes used to the medicine. This does NOT mean you are addicted. Addiction is a behavior related to getting and using a drug for a non-medical reason. If you have pain, you have a medical reason to take pain medicine. Your doctor will tell you how much medicine to take. If your doctor wants you to stop the medicine, the dose will be slowly lowered over time to avoid any side effects. You may get drowsy or dizzy. Do not drive, use machinery, or do anything that needs mental alertness until you know how this medicine affects you. Do not stand or sit up quickly, especially if you are an older patient. This reduces the risk of dizzy or fainting spells. Alcohol may interfere with the effect of this medicine. Avoid alcoholic drinks. There are different types of narcotic medicines (opiates) for pain. If you take more than one type at the same time, you may have more side effects. Give your health care provider a list of all medicines you use. Your doctor will tell you how much medicine to take. Do not take more medicine than directed. Call emergency for help if you have problems breathing. The medicine will cause constipation. Try to have a bowel movement at least every 2 to 3 days. If you do not have a bowel movement for 3 days, call your doctor or health career information specialist. Do not take Tylenol (acetaminophen) or medicines that have acetaminophen with this medicine. Too much acetaminophen can be very dangerous. Many nonprescription medicines contain acetaminophen. Always read the labels carefully to avoid taking more acetaminophen. You have been given the following additional information: Febrile Illness, Uncertain Cause (Adult) Thermometer Use Tooth Abscess Dental Cavity Dental Pain Fever Control (Adult) Clindamycin Hydrochloride Oral capsule Ibuprofen Oral tablet Oxycodone Hydrochloride, Acetaminophen Oral tablet (Electronically signed by Carmela Lyn A.R.N.P. 07/27/2016 21:34)
--- NOTE | 2016-07-27 21:35 | ED MAR SUMMARY ---
..... Medication Administration Record [facility] [address] [place] [address] Patient: SUMIT SUAZO Visit ID: [id number] 41y, M Weight: 77.1 kg Height/Length: 68 in BMI: 25.9 ALLERGIES: Lactose Intolerance (GI), Vicodin Given 20:07/27/2016 Natalie Roberts R.N. Medication Administered: OXYCODONE-APAP [PO] (OXYCODONE-ACETAMINOPHEN), Dose: 1 tab 5/325 mg Tablets PO. Medication Ordered: Oxycodone-APAP PO 5/325 mg (HIGH ALERT MEDICATION, NOW). Given 20:07/27/2016 Natalie Roberts R.N. Medication Administered: CLINDAMYCIN [IM], Dose: 600 mg IM. Medication Ordered: Clindamycin IM 600 mg (NOW). Given 20:07/27/2016 Natalie Roberts R.N. Medication Administered: IBUPROFEN [PO], Dose: 800 mg Tablets PO. Medication Ordered: Ibuprofen PO 800 mg (NOW).
--- NOTE | 2016-07-27 21:35 | ED MED RECONCILIATION SUMMARY ---
Patient: SUMIT SUAZO Medication Reconciliation Report [facility] VisitID: [id number] [place] [address] 41y, M Registration Date/Time: 07/27/2016 Weight: 77.1 kg Height/Length: 68 in. BMI: 25.9 ALLERGIES: Lactose Intolerance (GI), Vicodin The patient's Home Medications are listed below: THE FOLLOWING MEDICATIONS NEED TO BE RECONCILED: Penicillin V Potassium Oral, not sure of dosage, states he has had 3 doses of this PriLOSEC Oral The source(s) of the original Home Medication information: Not obtained. The following Medications were given to the patient in the Emergency Department: Oxycodone-APAP [PO] PO 1 tab, administered: 07/27/2016 8:30:00 PM Clindamycin [IM] IM 600 mg, administered: 07/27/2016 8:31:00 PM Ibuprofen [PO] PO 800 mg, administered: 07/27/2016 8:33:00 PM The following Medications were prescribed to the patient: Cleocin 300 mg: take 1 capsule orally every 6 hours for 7 days. No refills. Substitution is permissible. -- Carmela Lyn, Kira.R.N.P. Motrin 800 mg tablets: take 1 tablet orally every 8 hours as needed for pain. Dispense thirty (30). No refills. Substitution is permissible. -- Carmela Lyn, A.R.N.P. Percocet 5 mg/325 mg: take 1 tablet orally every 6 hours as needed for pain. Dispense fifteen (15). No refills. Substitution is permissible. -- Carmela Lyn, A.R.N.P.
--- NOTE | 2016-07-27 21:35 | ED MED RECONCILIATION SUMMARY ---
Patient: SUMIT SUAZO Medication Reconciliation Report [facility] VisitID: [id number] [place] [address] 41y, M Registration Date/Time: 07/27/2016 Weight: 77.1 kg Height/Length: 68 in. BMI: 25.9 ALLERGIES: Lactose Intolerance (GI), Vicodin The patient's Home Medications are listed below: THE FOLLOWING MEDICATIONS NEED TO BE RECONCILED: Penicillin V Potassium Oral, not sure of dosage, states he has had 3 doses of this PriLOSEC Oral The source(s) of the original Home Medication information: Not obtained. The following Medications were given to the patient in the Emergency Department: Oxycodone-APAP [PO] PO 1 tab, administered: 07/27/2016 8:30:00 PM Clindamycin [IM] IM 600 mg, administered: 07/27/2016 8:31:00 PM Ibuprofen [PO] PO 800 mg, administered: 07/27/2016 8:33:00 PM The following Medications were prescribed to the patient: Cleocin 300 mg: take 1 capsule orally every 6 hours for 7 days. No refills. Substitution is permissible. -- Carmela Lyn, Kira.R.N.P. Motrin 800 mg tablets: take 1 tablet orally every 8 hours as needed for pain. Dispense thirty (30). No refills. Substitution is permissible. -- Carmela Lyn, A.R.N.P. Percocet 5 mg/325 mg: take 1 tablet orally every 6 hours as needed for pain. Dispense fifteen (15). No refills. Substitution is permissible. -- Carmela Lyn, A.R.N.P.
--- NOTE | 2016-07-27 21:35 | ED MAR SUMMARY ---
..... Medication Administration Record [facility] [address] [place] [address] Patient: SUMIT SUAZO Visit ID: [id number] 41y, M Weight: 77.1 kg Height/Length: 68 in BMI: 25.9 ALLERGIES: Lactose Intolerance (GI), Vicodin Given 20:07/27/2016 Natalie Roberts R.N. Medication Administered: OXYCODONE-APAP [PO] (OXYCODONE-ACETAMINOPHEN), Dose: 1 tab 5/325 mg Tablets PO. Medication Ordered: Oxycodone-APAP PO 5/325 mg (HIGH ALERT MEDICATION, NOW). Given 20:07/27/2016 Natalie Roberts R.N. Medication Administered: CLINDAMYCIN [IM], Dose: 600 mg IM. Medication Ordered: Clindamycin IM 600 mg (NOW). Given 20:07/27/2016 Natalie Roberts R.N. Medication Administered: IBUPROFEN [PO], Dose: 800 mg Tablets PO. Medication Ordered: Ibuprofen PO 800 mg (NOW).
== END 2016-07-27 20:45 | disposition home or self-care (01) ==
LOC: ED SRH 20:05
DX: K04.7 Periapical abscess without sinus (principal); R50.9 Fever, unspecified; K21.9 Gastro-esophageal reflux disease without esophagitis; Z79.899 Other long term (current) drug therapy; F17.210 Nicotine dependence, cigarettes, uncomplicated; Z88.5 Allergy status to narcotic agent; Z88.8 Allergy status to other drugs, medicaments and biological substances